=== PATIENT | female | born 1960 | race Two or more races ===

== ENCOUNTER 2016-05-07 12:32 | Emergency (ER) | payer OTHER ==
[2016-05-07] MEDS ORDERED: KETOROLAC 30 MG/ML 1 ML VIAL IVP STA (13:39)
[2016-05-07] MEDS ORDERED: DIAZEPAM 5 MG TAB PO STA (13:40)
[2016-05-07] MEDS ORDERED: LIDOCAINE 5% PATCH TOPICAL STA (13:40)
[2016-05-07] MEDS ORDERED: HYDROcodone/APAP 5-325MG 1 EACH TAB PO STA (13:40)
[2016-05-07] MEDS ORDERED: KETOROLAC 30 MG/ML 1 ML VIAL IM STA (14:18)
--- NOTE | 2016-05-07 14:45 | XR ---
EXAMINATION TYPE: XR thoracic spine complete DATE OF EXAM: 05/07/2016 2:41 PM CLINICAL HISTORY: Mid back pain after injury. TECHNIQUE: Frontal, lateral, and swimmer's view of thoracic spine are obtained. COMPARISON: None. FINDINGS: Thoracic spine show satisfactory alignment without evidence of acute fracture or dislocatio n. Vertebral body heights and disc space heights are preserved. Visualized ribs are unremarkable jackie aterally. IMPRESSION: No acute fracture or dislocation is seen in the thoracic spine.
--- NOTE | 2016-05-07 15:30 | ED ---
Fall HPI - General Chief Complaint: Fall Stated Complaint: back injury Time Seen by Provider: 05/07/16 13:20 Source: patient Mode of arrival: ambulatory - History of Present Illness Initial Comments: Patient is a 56-year-old female with past mental history of fibromyalgia presenting with back pain after a fall. Patient states she was assisting her 82 -year-old father from the bathroom when he let go of his walker putting his weight on her for which she fell backwards hitting her back on a step. Patient had immediate pain. Patient states she didn't take anything for the pain. Patient woke up with continued pain for which she reports the ER. Patient denies any loss of bowel or bladder. Patient denies any saddle anesthesia. Patient locates pain at the midthoracic. She rates pain 10 out of 10. Patient complaining of back pain which radiates to her chest. She denies fever, chills , shortness breath, nausea, vomiting, diarrhea, abdominal pain, dysuria. - Related Data Home Medications Medication Instructions Recorded Confirmed Cholecalciferol [Vitamin D3] 1,000 unit PO DAILY@1200 07/28/13 05/07/16 Levothyroxine Sodium [Synthroid] 25 mcg PO DAILY 07/28/13 05/07/16 Methocarbamol [Robaxin] 750 mg PO PC-TID 07/28/13 05/07/16 Simvastatin [Zocor] 40 mg PO HS 07/28/13 05/07/16 Escitalopram [Lexapro] 20 mg PO DAILY 07/27/15 05/07/16 Gabapentin [Neurontin] 300 mg PO TID 07/27/15 05/07/16 hydrOXYzine PAMOATE [Vistaril] 25 mg PO TID 07/27/15 05/07/16 rOPINIRole HCL [Requip] 0.25 mg PO HS 07/27/15 05/07/16 Acetaminophen with Codeine 1 tab PO Q6HR PRN 05/07/16 05/07/16 [Tylenol w/codeine #4] Previous Rx's Medication Instructions Recorded Meclizine [Antivert] 25 mg PO TID PRN #15 tab 08/08/15 HYDROcodone/APAP 5-325MG [[place] 5] 1 each PO Q6HR PRN #6 tab 05/07/16 Ibuprofen [Motrin] 600 mg PO Q6HR PRN #20 tab 05/07/16 Methocarbamol [Robaxin-750] 750 mg PO TID #21 tablet 05/07/16 Allergies Allergy/AdvReac Type Severity Reaction Status Date / Time duloxetine HCl Allergy Rash/Hives Verified 05/07/16 13:53 [From Nita] Review of Systems ROS Statement: Those systems with pertinent positive or pertinent negative responses have been documented in the HPI. Constitutional: No fever and no chills. HENT: No congestion, no rhinorrhea and no sore throat. Eyes: No discharge and no redness. Respiratory: No cough and no shortness of breath. Cardiovascular: + chest pain and no palpitations. Gastrointestinal: No nausea, no vomiting, no abdominal pain and no diarrhea. Genitourinary: No dysuria and no hematuria. Musculoskeletal: + back pain and +arthralgias. Skin: No pallor and no rash. Neurological: No dizziness and No headaches. ROS Other: All systems not noted in ROS Statement are negative. Past Medical History Past Medical History: Thyroid Disorder Additional Past Medical History / Comment(s): anxiety, hypothyroidism, fibromyalgia, hypercholestremia History of Any Multi-Drug Resistant Organisms: None Reported Past Surgical History: Hysterectomy Past Psychological History: Anxiety, Depression Smoking Status: Current every day smoker Past Alcohol Use History: None Reported Past Drug Use History: None Reported General Exam - General Exam Comments Initial Comments: Constitutional: Patient appears well-developed and well-nourished. Mild distress with movement. Head: Normocephalic and atraumatic. Eyes: Conjunctivae and EOM are normal. Right eye exhibits no discharge. Left eye exhibits no discharge. No scleral icterus. Neck: Normal range of motion. Neck supple. Cardiovascular: Normal rate and regular rhythm. No murmur heard. Pulmonary/Chest: Effort normal and breath sounds normal. No respiratory distress. No wheezes. Abdominal: Soft. No distension. There is no tenderness. There is no rebound and no guarding. Musculoskeletal: Patient has maximal tenderness about T11/T12. No midline tenderness. No saddle anesthesia. Distal pulses present. Distal sensation and motor intact. Neurological: Patient alert and oriented to person, place, and time. Skin: Skin is warm and dry. Not diaphoretic. Nursing notes and vitals reviewed. Limitations: no limitations Course Vital Signs 05/07/16 05/07/16 13:11 15:48 Temperature 98.3 F 97.7 F Pulse Rate 80 74 Respiratory 18 16 Rate Blood Pressure 113/69 124/74 O2 Sat by Pulse 99 98 Oximetry - Reevaluation(s) Reevaluation #1: Patient doing much better after medication. Symptoms have resolved. No further chest pain or back pain. Medical Decision Making - Medical Decision Making Patient is a 56-year-old female with history of fibromyalgia presenting with acute midthoracic pain. Patient fell hitting her back on a carpeted step. Patient was given Valium 5 mg by mouth, [place] 5 mg, Toradol 30mg IM and a lidocaine patch. Thoracic XR unremarkable. EKG unremarkable. Prior to discharge, patient was resting comfortably in bed. Course of stay improved. Denies pain. Discussed physical exam and diagnostic tests with patient. Questions answered and patient is agreeable to discharge with close follow up with Primary Care Physician. Instructed to return to Emergency Department if symptoms worsen. Rate 79. NSR. No ST-T wave changes. MA internal normal . QRS interval normal. QTc duration normal. Disposition Clinical Impression: Back pain, Fall Disposition: HOME SELF-CARE Condition: Good Instructions: Back Pain (ED), Lower Back Exercises (ED) Prescriptions: HYDROcodone/APAP 5-325MG [[place] 5] 1 each PO Q6HR PRN #6 tab PRN Reason: Severe Pain Ibuprofen [Motrin] 600 mg PO Q6HR PRN #20 tab PRN Reason: Pain Methocarbamol [Robaxin-750] 750 mg PO TID #21 tablet Referrals: Go Marks III, MD [Primary Care Provider] - 1-2 days
[2016-05-07 15:49] VITALS: BP 124/74; PULSE 74; RESP 16; TEMP 97.7
== END 2016-05-07 15:48 | disposition home or self-care (01) ==
LOC: EC 12:32
DX: M54.6 Pain in thoracic spine (principal); W03.XXXA Other fall on same level due to collision with another person, initial encounter; Y93.F9 Activity, other caregiving; E03.9 Hypothyroidism, unspecified; M79.7 Fibromyalgia; F41.9 Anxiety disorder, unspecified; F32.9 Major depressive disorder, single episode, unspecified; F17.200 Nicotine dependence, unspecified, uncomplicated; Z79.899 Other long term (current) drug therapy; Z88.8 Allergy status to other drugs, medicaments and biological substances
CPT/HCPCS: 93005; 72072; 99284; 96372; J1885

== ENCOUNTER 2017-10-08 20:17 | Observation (INO) | payer OTHER ==
[2017-10-08] MEDS ORDERED: SODIUM CHLORIDE 0.9% 1,000 ML IV ONE (20:39)
[2017-10-08] MEDS ORDERED: ACETAMINOPHEN IV (For NPO) 1,000 MG in EMPTY BAG 1 BAG IVPB ONE (20:39)
[2017-10-08 21:13] LABS: Basophils # (A) 0.1 k/uL (0-0.2); Basophils % (A) 0 %; Eosinophils # (A) 0.2 k/uL (0-0.7); Eosinophils % (A) 1 %; HCT 44.6 % (34.0-46.0); HGB 13.9 gm/dL (11.4-16.0); Lymphocytes # (A) 3.4 k/uL (1.0-4.8); Lymphocytes % (A) 27 %; MCHC 31.1 g/dL (31.0-37.0); MCV 89.8 fL (80.0-100.0); Mean Platelet Volume 6.5; Monocytes # (A) 0.7 k/uL (0-1.0); Monocytes % (A) 5 %; Neutrophils # (A) 8.2 k/uL (1.3-7.7); Neutrophils % (A) 64 %; Platelet Count 397 k/uL (150-450); RBC 4.96 m/uL (3.80-5.40); RDW 14.3 % (11.5-15.5); WBC 12.9 k/uL (3.8-10.6)
--- NOTE | 2017-10-08 21:15 | ED ---
General Adult HPI - General Chief complaint: Syncope Stated complaint: headache/dizziness Time Seen by Provider: 10/08/17 20:32 Source: patient, EMS Mode of arrival: EMS - History of Present Illness Initial comments: This is a 57-year-old female who presents emergency department for an episode of unresponsiveness. The patient reportedly developed a squeezing type headache around 4 PM when her left for work. She states that she went to the other room to lay down and that the last thing that she remembers. The states that he came home on his lunch break and found her sleeping. He tried to shake her and wake her up however she did not respond. He states that she felt like she had a weak pulse and was not breathing so he called EMS. The states that EMS did CPR on the patient however EMS stated that they did a sternal rub on her and that she woke up. The patient does take Percocet and Neurontin for chronic pain. She states that she did take a Percocet earlier this morning however denies taking 1 his evening. She denies any illicit drug use except for medical marijuana. Currently she states that she has some chest pain and a headache. She denies any shortness of breath. No nausea, vomiting, or diarrhea. No cardiac history. No other acute complaints. - Related Data Home Medications Medication Instructions Recorded Confirmed Cholecalciferol [Vitamin D3] 1,000 unit PO DAILY 07/28/13 10/08/17 Levothyroxine Sodium [Synthroid] 25 mcg PO DAILY 07/28/13 10/08/17 rOPINIRole HCL [Requip] 0.25 mg PO HS 07/27/15 10/08/17 Cyanocobalamin [Vitamin B-12] 500 mcg PO DAILY 10/08/17 10/08/17 Etodolac [Lodine] 400 mg PO BID 10/08/17 10/08/17 Multivitamins, Thera [Multivitamin 1 tab PO DAILY 10/08/17 10/08/17 (formulary)] Simvastatin [Zocor] 20 mg PO HS 10/08/17 10/08/17 oxyCODONE-APAP 10-325MG [Percocet 1 tab PO Q6HR PRN 10/08/17 10/08/17 10-325 mg] Allergies Allergy/AdvReac Type Severity Reaction Status Date / Time duloxetine HCl Allergy Rash/Hives Verified 10/08/17 21:14 [From Cymbalta] Review of Systems ROS Statement: Those systems with pertinent positive or pertinent negative responses have been documented in the HPI. ROS Other: All systems not noted in ROS Statement are negative. Past Medical History Past Medical History: Fibromyalgia, Hyperlipidemia, Thyroid Disorder Additional Past Medical History / Comment(s): anxiety, History of Any Multi-Drug Resistant Organisms: None Reported Past Surgical History: Hysterectomy Past Psychological History: Anxiety, Depression Smoking Status: Current every day smoker Past Alcohol Use History: None Reported Past Drug Use History: Marijuana General Exam - General Exam Comments Initial Comments: Constitutional: Awake alert Appears comfortable Head: Normocephalic atraumatic Eyes: no conjunctival injection No scleral icterus EOMI, pupils are 2 mm and sluggish Neck: No JVD Supple Heart: Regular rate rhythm normal S1-S2 no murmurs Lungs: Clear to auscultation bilaterally No wheezing No rales Abdomen: Soft nondistended nontender Extremities: Non edematous DP pulses intact Radial pulses intact Neuro: A&Ox3, cranial nerves II through XII are grossly intact, 5 out of 5 strength in upper and lower extremities bilaterally, No focal neurologic deficits Psych: Appropriate mood and affect Course Vital Signs 10/08/17 20:18 Temperature 97.2 F L Pulse Rate 66 Respiratory 18 Rate Blood Pressure 142/74 O2 Sat by Pulse 95 Oximetry EKG Findings - EKG Comments: EKG Findings:: EKG is showing sinus bradycardia constitution party with a rate 57. No abnormal ST segment changes or T-wave inversion. QTC is 35. Other intervals normal. No ectopy. Medical Decision Making - Medical Decision Making This is a 37-year-old female who came in for an episode of unresponsiveness. At this time her blood work is unremarkable. CT the head is unremarkable. All testing is appeared normal. At this time the etiology of what occurred is unclear area and the is adamant that CPR was performed on scene by an officer for approximately 1 minute. Unclear if the patient had a syncopal episode with hypotension or if she actually did sustain cardiopulmonary arrest. The patient has had no complaints on the emergency department is awake and laughing. However due to the circumstances surrounding the event I feel that she needs to stay in the hospital for monitoring. We'll place on telemetry and consult cardiology for possible syncope. Patient may benefit from an echocardiogram. - Lab Data Result diagrams: 10/08/17 20:51 10/08/17 20:51 Lab Results 10/08/17 10/08/17 10/08/17 Range/Units 20:51 20:51 20:51 WBC 12.9 H (3.8-10.6) k/uL RBC 4.96 (3.80-5.40) m/uL Hgb 13.9 (11.4-16.0) gm/dL Hct 44.6 (34.0-46.0) % MCV 89.8 (80.0-100.0) fL MCH 28.0 (25.0-35.0) pg MCHC 31.1 (31.0-37.0) g/dL RDW 14.3 (11.5-15.5) % Plt Count 397 (150-450) k/uL Neutrophils % 64 % Lymphocytes % 27 % Monocytes % 5 % Eosinophils % 1 % Basophils % 0 % Neutrophils # 8.2 H (1.3-7.7) k/uL Lymphocytes # 3.4 (1.0-4.8) k/uL Monocytes # 0.7 (0-1.0) k/uL Eosinophils # 0.2 (0-0.7) k/uL Basophils # 0.1 (0-0.2) k/uL PT (9.0-12.0) sec INR (<1.2) APTT (22.0-30.0) sec Sodium 140 (137-145) mmol/L Potassium 4.9 (3.5-5.1) mmol/L Chloride 107 (98-107) mmol/L Carbon Dioxide 27 (22-30) mmol/L Anion Gap 6 mmol/L BUN 13 (7-17) mg/dL Creatinine 0.70 (0.52-1.04) mg/dL Est GFR (CKD-EPI)AfAm >90 (>60 ml/min/1.73 sqM) Est GFR (CKD-EPI)NonAf >90 (>60 ml/min/1.73 sqM) Glucose 86 (74-99) mg/dL Plasma Lactic Acid Malcolm (0.7-2.0) mmol/L Calcium 10.2 (8.4-10.2) mg/dL Magnesium 2.0 (1.6-2.3) mg/dL Total Bilirubin 0.6 (0.2-1.3) mg/dL AST 30 (14-36) U/L ALT 33 (9-52) U/L Alkaline Phosphatase 80 (38-126) U/L Troponin I (0.000-0.034) ng/mL NT-Pro-B Natriuret Pep 26 pg/mL Total Protein 7.9 (6.3-8.2) g/dL Albumin 4.6 (3.5-5.0) g/dL Urine Color Urine Appearance (Clear) Urine pH (5.0-8.0) Ur Specific [place] (1.001-1.035) Urine Protein (Negative) Urine Glucose (UA) (Negative) Urine Ketones (Negative) Urine Blood (Negative) Urine Nitrite (Negative) Urine Bilirubin (Negative) Urine Urobilinogen (<2.0) mg/dL Ur Leukocyte Esterase (Negative) Urine WBC (0-5) /hpf Ur Squamous Epith Cells (0-4) /hpf Urine Mucus (None) /hpf Urine HCG, Qual (Not Detectd) Salicylates <1.0 mg/dL Urine Opiates Screen (NotDetected) Ur Oxycodone Screen (NotDetected) Urine Methadone Screen (NotDetected) Ur Propoxyphene Screen (NotDetected) Acetaminophen <10.0 ug/mL Ur Barbiturates Screen (NotDetected) U Tricyclic Antidepress (NotDetected) Ur Phencyclidine Scrn (NotDetected) Ur Amphetamines Screen (NotDetected) U Methamphetamines Scrn (NotDetected) U Benzodiazepines Scrn (NotDetected) Urine Cocaine Screen (NotDetected) U Marijuana (THC) Screen (NotDetected) Serum Alcohol <10 mg/dL 10/08/17 10/08/17 10/08/17 Range/Units 20:51 20:51 21:06 WBC (3.8-10.6) k/uL RBC (3.80-5.40) m/uL Hgb (11.4-16.0) gm/dL Hct (34.0-46.0) % MCV (80.0-100.0) fL MCH (25.0-35.0) pg MCHC (31.0-37.0) g/dL RDW (11.5-15.5) % Plt Count (150-450) k/uL Neutrophils % % Lymphocytes % % Monocytes % % Eosinophils % % Basophils % % Neutrophils # (1.3-7.7) k/uL Lymphocytes # (1.0-4.8) k/uL Monocytes # (0-1.0) k/uL Eosinophils # (0-0.7) k/uL Basophils # (0-0.2) k/uL PT 10.5 (9.0-12.0) sec INR 1.1 (<1.2) APTT 26.0 (22.0-30.0) sec Sodium (137-145) mmol/L Potassium (3.5-5.1) mmol/L Chloride (98-107) mmol/L Carbon Dioxide (22-30) mmol/L Anion Gap mmol/L BUN (7-17) mg/dL Creatinine (0.52-1.04) mg/dL Est GFR (CKD-EPI)AfAm (>60 ml/min/1.73 sqM) Est GFR (CKD-EPI)NonAf (>60 ml/min/1.73 sqM) Glucose (74-99) mg/dL Plasma Lactic Acid Malcolm 0.7 (0.7-2.0) mmol/L Calcium (8.4-10.2) mg/dL Magnesium (1.6-2.3) mg/dL Total Bilirubin (0.2-1.3) mg/dL AST (14-36) U/L ALT (9-52) U/L Alkaline Phosphatase (38-126) U/L Troponin I <0.012 (0.000-0.034) ng/mL NT-Pro-B Natriuret Pep pg/mL Total Protein (6.3-8.2) g/dL Albumin (3.5-5.0) g/dL Urine Color Urine Appearance (Clear) Urine pH (5.0-8.0) Ur Specific [place] (1.001-1.035) Urine Protein (Negative) Urine Glucose (UA) (Negative) Urine Ketones (Negative) Urine Blood (Negative) Urine Nitrite (Negative) Urine Bilirubin (Negative) Urine Urobilinogen (<2.0) mg/dL Ur Leukocyte Esterase (Negative) Urine WBC (0-5) /hpf Ur Squamous Epith Cells (0-4) /hpf Urine Mucus (None) /hpf Urine HCG, Qual (Not Detectd) Salicylates mg/dL Urine Opiates Screen (NotDetected) Ur Oxycodone Screen (NotDetected) Urine Methadone Screen (NotDetected) Ur Propoxyphene Screen (NotDetected) Acetaminophen ug/mL Ur Barbiturates Screen (NotDetected) U Tricyclic Antidepress (NotDetected) Ur Phencyclidine Scrn (NotDetected) Ur Amphetamines Screen (NotDetected) U Methamphetamines Scrn (NotDetected) U Benzodiazepines Scrn (NotDetected) Urine Cocaine Screen (NotDetected) U Marijuana (THC) Screen (NotDetected) Serum Alcohol mg/dL 10/08/17 10/08/17 Range/Units 22:23 22:23 WBC (3.8-10.6) k/uL RBC (3.80-5.40) m/uL Hgb (11.4-16.0) gm/dL Hct (34.0-46.0) % MCV (80.0-100.0) fL MCH (25.0-35.0) pg MCHC (31.0-37.0) g/dL RDW (11.5-15.5) % Plt Count (150-450) k/uL Neutrophils % % Lymphocytes % % Monocytes % % Eosinophils % % Basophils % % Neutrophils # (1.3-7.7) k/uL Lymphocytes # (1.0-4.8) k/uL Monocytes # (0-1.0) k/uL Eosinophils # (0-0.7) k/uL Basophils # (0-0.2) k/uL PT (9.0-12.0) sec INR (<1.2) APTT (22.0-30.0) sec Sodium (137-145) mmol/L Potassium (3.5-5.1) mmol/L Chloride (98-107) mmol/L Carbon Dioxide (22-30) mmol/L Anion Gap mmol/L BUN (7-17) mg/dL Creatinine (0.52-1.04) mg/dL Est GFR (CKD-EPI)AfAm (>60 ml/min/1.73 sqM) Est GFR (CKD-EPI)NonAf (>60 ml/min/1.73 sqM) Glucose (74-99) mg/dL Plasma Lactic Acid Malcolm (0.7-2.0) mmol/L Calcium (8.4-10.2) mg/dL Magnesium (1.6-2.3) mg/dL Total Bilirubin (0.2-1.3) mg/dL AST (14-36) U/L ALT (9-52) U/L Alkaline Phosphatase (38-126) U/L Troponin I (0.000-0.034) ng/mL NT-Pro-B Natriuret Pep pg/mL Total Protein (6.3-8.2) g/dL Albumin (3.5-5.0) g/dL Urine Color Light Yellow Urine Appearance Clear (Clear) Urine pH 6.0 (5.0-8.0) Ur Specific [place] 1.009 (1.001-1.035) Urine Protein Negative (Negative) Urine Glucose (UA) Negative (Negative) Urine Ketones Negative (Negative) Urine Blood Negative (Negative) Urine Nitrite Negative (Negative) Urine Bilirubin 2+ H (Negative) Urine Urobilinogen <2.0 (<2.0) mg/dL Ur Leukocyte Esterase Trace H (Negative) Urine WBC 3 (0-5) /hpf Ur Squamous Epith Cells 1 (0-4) /hpf Urine Mucus Rare H (None) /hpf Urine HCG, Qual Not Detected (Not Detectd) Salicylates mg/dL Urine Opiates Screen Not Detected (NotDetected) Ur Oxycodone Screen Detected H (NotDetected) Urine Methadone Screen Not Detected (NotDetected) Ur Propoxyphene Screen Not Detected (NotDetected) Acetaminophen ug/mL Ur Barbiturates Screen Not Detected (NotDetected) U Tricyclic Antidepress Not Detected (NotDetected) Ur Phencyclidine Scrn Not Detected (NotDetected) Ur Amphetamines Screen Not Detected (NotDetected) U Methamphetamines Scrn Not Detected (NotDetected) U Benzodiazepines Scrn Detected H (NotDetected) Urine Cocaine Screen Not Detected (NotDetected) U Marijuana (THC) Screen Not Detected (NotDetected) Serum Alcohol mg/dL Disposition Clinical Impression: Unresponsive episode, Syncope Disposition: ADMITTED IP TO THIS HOSP Condition: Stable
[2017-10-08 21:17] LABS: INR 1.1 (<1.2); Prothrombin Time 10.5 sec (9.0-12.0)
[2017-10-08 21:23] LABS: ALT 33 U/L (9-52); AST 30 U/L (14-36); Acetaminophen <10.0 ug/mL; Albumin 4.6 g/dL (3.5-5.0); Alcohol <10 mg/dL; Alkaline Phosphatase 80 U/L (38-126); Anion Gap 6 mmol/L; Blood Urea Nitrogen 13 mg/dL (7-17); Calcium 10.2 mg/dL (8.4-10.2); Carbon Dioxide 27 mmol/L (22-30); Chloride 107 mmol/L (98-107); Glucose 86 mg/dL (74-99); Potassium 4.9 mmol/L (3.5-5.1); Salicylate <1.0 mg/dL; Sodium 140 mmol/L (137-145); Total Bilirubin 0.6 mg/dL (0.2-1.3); Total Protein 7.9 g/dL (6.3-8.2)
--- NOTE | 2017-10-08 21:40 | XR ---
EXAMINATION TYPE: XR chest 2V DATE OF EXAM: 10/08/2017 COMPARISON: 08/08/2015 HISTORY: Chest pain TECHNIQUE: Frontal and lateral views of the chest are obtained. FINDINGS: Heart and mediastinum are normal. Lungs are clear. Diaphragm is normal. IMPRESSION: Normal chest. No change.
--- NOTE | 2017-10-08 21:47 | CT ---
EXAMINATION TYPE: CT brain wo con DATE OF EXAM: 10/08/2017 COMPARISON: 08/08/2015 HISTORY: GERONIMO and dizziness CT DLP: 990.5 mGycm Automated exposure control for dose reduction was used. FINDINGS: There is mild cerebral cortical atrophy. There is no mass effect nor midline shift. There is no sign of intracranial hemorrhage. The calvarium is intact. There is mild mucosal thickening in the sphenoid sinus. IMPRESSION: NO ACUTE INTRACRANIAL ABNORMALITY. MILD SPHENOID SINUSITIS IS NEW COMPARED TO OLD EXAM.
[2017-10-08 22:36] LABS: Appearance,Urine Clear (Clear); Bilirubin,Urine 2+ (Negative); Blood,Urine Negative (Negative); Color,Urine Light Yellow; Glucose,Urine (UA) Negative (Negative); Ketones,Urine Negative (Negative); Leukocyte Esterase,Urine Trace (Negative); Mucus,Urine Rare /hpf; Nitrite,Urine Negative (Negative); Protein,Urine Negative (Negative); Specific Gravity,Urine 1.009 (1.001-1.035); Squamous Epithelial Cell,Urine 1 /hpf (0-4); Urobilinogen,Urine <2.0 mg/dL (<2.0); WBC,Urine 3 /hpf (0-5)
[2017-10-08 22:47] LABS: Amphetamine Screen,Urine Not Detected (NotDetected); Barbiturate Screen,Urine Not Detected (NotDetected); Benzodiazepines Screen,Urine Detected (NotDetected); Cocaine Screen,Urine Not Detected (NotDetected); Methadone Screen, Urine Not Detected (NotDetected); Opiate Screen,Urine Not Detected (NotDetected); Oxycodone Screen, Urine Detected (NotDetected); Phencyclidine Screen,Urine Not Detected (NotDetected); Tricyclic Antidepressant,Urine Not Detected (NotDetected); Urn Cannabinoid Scrn Not Detected (NotDetected)
[2017-10-08] MEDS ORDERED: ONDANSETRON 4 MG/2 ML VIAL IVP PRN (22:48)
[2017-10-08] MEDS ORDERED: NALOXONE 0.4 MG/ML 1 ML VIAL IV PRN (22:48)
[2017-10-08] MEDS ORDERED: ACETAMINOPHEN TAB 325 MG TAB PO PRN (22:48)
[2017-10-09 00:04] VITALS: BMI 32.8
[2017-10-09] MEDS: oxyCODONE-APAP 10-325MG 1 EACH TAB PO PRN ×3 (00:41→21:15)
[2017-10-09 03:12] LABS: Creatine Kinase 54 U/L (30-135)
[2017-10-09 03:25] LABS: Creatine Kinase MB 0.3 ng/mL (0.0-2.4); Troponin I <0.012 ng/mL (0.000-0.034)
[2017-10-09] MEDS: LEVOTHYROXINE 25 MCG TAB PO SCH (06:41)
[2017-10-09] MEDS: ETODOLAC 400 MG TAB PO SCH ×2 (08:57→21:08)
[2017-10-09] MEDS: CYANOCOBALAMIN 500 MCG TAB PO SCH (08:58)
[2017-10-09] MEDS: MULTIVITAMINS, THERA 1 EACH TAB PO SCH (08:58)
[2017-10-09] MEDS: CHOLECALCIFEROL 1,000 UNIT TAB PO SCH (08:58)
[2017-10-09] MEDS ORDERED: DOBUTamine DRIP for NUC MED 500 MG in DEXTROSE/WATER 1 250ML.BAG IV ONE (09:11)
--- NOTE | 2017-10-09 10:15 | ECHOF ---
Referral Reason:cp MEASUREMENTS -------- HEIGHT: 154.9 cm WEIGHT: 78.5 kg BP: 103/61 RVIDd: 3.0 cm (< 3.3) IVSd: 1.2 cm (0.6 - 1.1) LVIDd: 4.5 cm (3.9 - 5.3) LVPWd: 1.2 cm (0.6 - 1.1) IVSs: 1.6 cm LVIDs: 2.7 cm LVPWs: 2.0 cm LA Diam: 3.5 cm (2.7 - 3.8) LAESV Index (A-L): 22.92 ml/m Ao Diam: 3.0 cm (2.0 - 3.7) AV Cusp: 2.0 cm (1.5 - 2.6) MV EXCURSION: 13.189 mm (> 18.000) MV EF SLOPE: 80 mm/s (70 - 150) EPSS: 0.3 cm MV E David: 1.13 m/s MV DecT: 227 ms MV A David: 0.76 m/s MV E/A Ratio: 1.48 RAP: 5.00 mmHg RVSP: 18.74 mmHg FINDINGS -------- Sinus rhythm. This was a technically good study. The left ventricular size is normal. There is borderline concentric left ventricular hypertrophy. Overall left ventricular systolic function is normal with, an EF between 55 - 60 %. The right ventricle is normal in size. Normal LA size by volume 22+/-6 ml/m2. The right atrium is normal in size. The aortic valve is trileaflet and appears structurally normal. Mild mitral annular calcification present. Mild tricuspid regurgitation present. Right ventricular systolic pressure is normal at < 35 mmHg. Trace/mild (physiologic) pulmonic regurgitation. The aortic root size is normal. Normal inferior vena cava with normal inspiratory collapse consistent with estimated right atrial pre ssure of 5 mmHg. There is no pericardial effusion. CONCLUSIONS -------- 1. Sinus rhythm. 2. This was a technically good study. 3. The left ventricular size is normal. 4. There is borderline concentric left ventricular hypertrophy. 5. Overall left ventricular systolic function is normal with, an EF between 55 - 60 %. 6. The right ventricle is normal in size. 7. Normal LA size by volume 22+/-6 ml/m2. 8. The right atrium is normal in size. 9. The aortic valve is trileaflet and appears structurally normal. 10. Mild mitral annular calcification present. 11. Mild tricuspid regurgitation present. 12. Right ventricular systolic pressure is normal at < 35 mmHg. 13. Trace/mild (physiologic) pulmonic regurgitation. 14. The aortic root size is normal. 15. Normal inferior vena cava with normal inspiratory collapse consistent with estimated right atrial pressure of 5 mmHg. 16. There is no pericardial effusion. PERSONAL DEVELOPMENT MENTOR: Danica Briggs RDCS
[2017-10-09 10:19] LABS: Creatine Kinase 52 U/L (30-135)
[2017-10-09 10:32] LABS: Creatine Kinase MB 0.3 ng/mL (0.0-2.4); Troponin I <0.012 ng/mL (0.000-0.034)
--- NOTE | 2017-10-09 10:32 | P.CRDCN ---
History of Present Illness History of present illness: Mrs. Herrera is a pleasant 57-year-old female past medical history significant for dyslipidemia, fibromyalgia, anxiety, hypothyroidism and chronic nicotine dependence. She denies history of coronary artery disease and has never seen a nail sticker for any reason. We have been asked to see her in consultation for chest pain and syncope. She states yesterday was feeling tired and was having some non-specific chest tightness. Like a band around her chest squeezing. Denies shortness of breath, palpitations, dizziness, nausea, vomiting or diaphoresis. She went to lay down in bed, her came to check on her and states she was unresponsive and not breathing. EMS was called and there is some question of them doing chest compressions versus a sternal rub. She states she woke up at home after EMS arrived. After waking up she denied having any chest pain, shortness of breath, nausea, vomiting, diaphoresis, palpitations or dizziness. She states she felt anxious. EKG reveals sinus bradycardia heart rate [address] or T-wave abnormalities. Chest xray negative for an acute cardiopulmonary process. CT brain reveals sinusitis. Laboratory data reviewed, WBC 12.9, hemoglobin 13.9, platelets 397, sodium 140, potassium 4.9, magnesium 2.0, creatinine 0.7, cardiac enzymes negative 2. Current cardiac medications include simvastatin 20 mg daily. She also takes Percocet, Requip, Synthroid, [place] and and vitamin supplementation. Telemetry tracings unremarkable. Review of Systems At the time of my exam: CONSTITUTIONAL: Denies fever. Denies chills. EYES: Denies blurred vision. Denies vision changes. Denies eye pain. EARS, NOSE, MOUTH & THROAT: Denies headache. Denies sore throat. Denies ear pain. CARDIOVASCULAR: Denies chest pain. Denies shortness of breath. Denies orthopnea. Denies PND. Denies palpitations. RESPIRATORY: Denies cough. GASTROINTESTINAL: Denies abdominal pain. Denies diarrhea. Denies constipation. Denies nausea. Denies vomiting. MUSCULOSKELETAL: Denies myalgias. INTEGUMENTARY: Denies pruitis. Denies rash. NEUROLOGIC: Denies numbness. Denies tingling. Denies weakness. PSYCHIATRIC: Denies anxiety. Denies depression. ENDOCRINE: Denies fatigue. Denies weight change. Denies polydipsia. Denies polyurina. GENITOURINARY: Denies burning, hematuria or urgency with micturation. HEMATOLOGIC: Denies history of anemia. Denies bleeding. Past Medical History Past Medical History: Fibromyalgia, Hyperlipidemia, Thyroid Disorder Additional Past Medical History / Comment(s): anxiety, History of Any Multi-Drug Resistant Organisms: None Reported Past Surgical History: Hysterectomy Past Anesthesia/Blood Transfusion Reactions: No Reported Reaction Smoking Status: Current every day smoker - Past Family History Mother Family Medical History: Cancer Additional Family Medical History / Comment(s): stomach CA Father Family Medical History: Cancer Additional Family Medical History / Comment(s): Throat CA Sister(s) Family Medical History: Cancer Additional Family Medical History / Comment(s): Breast CA Medications and Allergies Home Medications Medication Instructions Recorded Confirmed Type Cholecalciferol [Vitamin D3] 1,000 unit PO DAILY 07/28/13 10/08/17 History Levothyroxine Sodium [Synthroid] 25 mcg PO DAILY 07/28/13 10/08/17 History rOPINIRole HCL [Requip] 0.25 mg PO HS 07/27/15 10/08/17 History Cyanocobalamin [Vitamin B-12] 500 mcg PO DAILY 10/08/17 10/08/17 History Etodolac [Lodine] 400 mg PO BID 10/08/17 10/08/17 History Multivitamins, Thera [Multivitamin 1 tab PO DAILY 10/08/17 10/08/17 History (formulary)] Simvastatin [Zocor] 20 mg PO HS 10/08/17 10/08/17 History oxyCODONE-APAP 10-325MG [Percocet 1 tab PO Q6HR PRN 10/08/17 10/08/17 History 10-325 mg] Allergies Allergy/AdvReac Type Severity Reaction Status Date / Time duloxetine HCl Allergy Rash/Hives Verified 10/08/17 23:53 [From [facility]] Physical Exam Vitals: Vital Signs Temp Pulse Pulse Resp BP BP Pulse Ox 10/09/17 03:53 98.0 F 71 18 103/61 97 10/09/17 03:15 16 10/09/17 00:00 16 10/08/17 23:57 97.6 F 62 16 129/68 97 10/08/17 22:56 70 20 126/75 99 07/23/18 20:18 97.2 F L 66 18 142/74 95 Intake and Output 10/08/17 10/09/17 10/09/17 22:59 06:59 14:59 Intake Total 800 Balance 800 Intake: Amount of Fluid Infused ( 800 ml) Other: # Voids 1 Weight 78.925 kg 78.9 kg Blood pressure 102/60 heart rate 62 afebrile maintaining oxygen saturation on room air GENERAL: This is a 57-year-old female in no apparent distress at the time of my examination. HEENT: Head is atraumatic, normocephalic. Pupils are equal, round. Sclerae anicteric. Conjunctivae are clear. Mucous membranes of the mouth are moist. Neck is supple. There is no jugular venous distention. No carotid bruit is heard. LUNGS: Clear to auscultation no wheezes, rales or rhonchi. No chest wall tenderness is noted on palpation or with deep breathing. HEART: Regular rate and rhythm without murmurs, rubs or gallops. S1 and S2 heard. ABDOMEN: Soft, nontender. Bowel sounds are heard. No organomegaly noted. EXTREMITIES: No evidence of peripheral edema and no calf tenderness noted. VASCULAR: Radial and dorsalis pedis pulses palpated, no evidence of clubbing. NEUROLOGIC: Patient is awake, alert and oriented x3. Results 10/08/17 20:51 10/08/17 20:51 Cardiac Enzymes 10/08/17 10/08/17 10/09/17 Range/Units 20:51 20:51 02:40 AST 30 (14-36) U/L CK-MB (CK-2) 0.3 (0.0-2.4) ng/mL Troponin I <0.012 <0.012 (0.000-0.034) ng/mL Coagulation 10/08/17 Range/Units 20:51 PT 10.5 (9.0-12.0) sec APTT 26.0 (22.0-30.0) sec CBC 10/08/17 Range/Units 20:51 WBC 12.9 H (3.8-10.6) k/uL RBC 4.96 (3.80-5.40) m/uL Hgb 13.9 (11.4-16.0) gm/dL Hct 44.6 (34.0-46.0) % Plt Count 397 (150-450) k/uL Comprehensive Metabolic Panel 10/08/17 Range/Units 20:51 Sodium 140 (137-145) mmol/L Potassium 4.9 (3.5-5.1) mmol/L Chloride 107 (98-107) mmol/L Carbon Dioxide 27 (22-30) mmol/L BUN 13 (7-17) mg/dL Creatinine 0.70 (0.52-1.04) mg/dL Glucose 86 (74-99) mg/dL Calcium 10.2 (8.4-10.2) mg/dL AST 30 (14-36) U/L ALT 33 (9-52) U/L Alkaline Phosphatase 80 (38-126) U/L Total Protein 7.9 (6.3-8.2) g/dL Albumin 4.6 (3.5-5.0) g/dL Current Medications Generic Name Dose Route Start Last Admin Trade Name Freq PRN Reason Stop Dose Admin Acetaminophen 650 mg 10/08/17 22:48 Tylenol Tab PO Q6HR PRN Mild Pain or Fever > 100.5 Atorvastatin Calcium 10 mg 10/09/17 21:00 Lipitor PO HS [facility] Cholecalciferol 1,000 unit 10/09/17 09:00 Vitamin D3 PO DAILY [facility] Cyanocobalamin 500 mcg 10/09/17 09:00 Vitamin B-12 PO DAILY [facility] Etodolac 400 mg 10/09/17 09:00 Lodine PO BID [facility] Levothyroxine Sodium 25 mcg 10/09/17 06:30 10/09/17 06:41 Synthroid PO 25 mcg 0630 [facility] Administration Multivitamins 1 each 10/09/17 09:00 Theragran PO DAILY [facility] Naloxone HCl 0.2 mg 10/08/17 22:48 Narcan IV Q2M PRN Opioid Reversal Ondansetron HCl 4 mg 10/08/17 22:48 Zofran IVP Q8HR PRN Nausea And Vomiting Oxycodone/Acetaminophen 1 each 10/09/17 00:35 10/09/17 06:41 Percocet 10-325 PO 1 each Q6HR PRN Administration SEVERE Pain Ropinirole HCl 0.25 mg 10/09/17 21:00 Requip PO HS [facility] Intake and Output 07/2310/09/17 10/09/17 22:59 06:59 14:59 Intake Total 800 Balance 800 Intake: Amount of Fluid Infused ( 800 ml) Other: # Voids 1 Weight 78.925 kg 78.9 kg 10/08/17 20:51 10/08/17 20:51 Assessment and Plan Assessment: ASSESSMENT Chest pain, atypical. An acute coronary event has been ruled out. Possible syncope. History of dyslipidemia Fibromyalgia Chronic nicotine dependence PLAN An acute coronary event has been ruled out. Obtain 2-D echocardiogram and Doppler study to assess cardiac structure and function. Perform dobutamine stress echocardiogram to assess for stress-induced cardiac ischemia. If above diagnostic testing is normal she is stable from a cardiac perspective. Thank you kindly for this consultation. The above impression and plan of care have been discussed and directed by the signing physician. Sabi Alcaraz, nurse practitioner, acting as scribe for signing physician.
--- NOTE | 2017-10-09 12:52 | ECHOS ---
STRESS ECHOCARDIOGRAM INDICATIONS: Chest pain. MEDICATIONS: Thyroid, cholesterol and nerve pills. BASELINE HEART RATE: 58 BASELINE BLOOD PRESSURE: 116/99 MAXIMUM HEART RATE: 142 MAXIMUM BLOOD PRESSURE: 138/60 85% MPHR: 140 100% MPHR: 165 MAXIMUM STAGE REACHED: IV TOTAL EXERCISE TIME: 12:10 CLINICAL INFORMATION: Baseline EKG shows sinus rhythm, normal axis, normal intervals. Patient was given intravenous dobutamine over a period of 12 minutes as per protocol. Did not have chest pain or diagnostic ST-segment depression. Baseline echo shows normal left ventricular size, wall motion and systolic function. Post dobutamine infusion, there is normal hyperdynamic response of all segments of myocardium noted. CONCLUSION: 1. Negative stress test by EKG criteria. 2. Negative dobutamine echo. MMODL / IJN: [id number] /
[2017-10-09 15:51] LABS: Basophils % (A) 1 %; HGB 12.4 gm/dL (11.4-16.0); Neutrophils # (A) 3.9 k/uL (1.3-7.7); RDW 14.3 % (11.5-15.5); WBC 7.9 k/uL (3.8-10.6)
[2017-10-09 15:53] LABS: Eosinophils # (A) 0.2 k/uL (0-0.7); Eosinophils % (A) 2 %; HCT 37.8 % (34.0-46.0); Lymphocytes % (A) 39 %; MCH 29.6 pg (25.0-35.0); MCHC 32.9 g/dL (31.0-37.0); Mean Platelet Volume 6.8; Monocytes # (A) 0.4 k/uL (0-1.0); Monocytes % (A) 6 %; Neutrophils % (A) 50 %; Platelet Count 362 k/uL (150-450)
--- NOTE | 2017-10-09 15:55 | P.HPIM ---
History of Present Illness This is a pleasant 57 years old female with past medical history of fibromyalgia , hyperlipidemia hypothyroidism, hysterectomy. Who presents because of syncope. Patient reports she had severe intense headache on the top of her head for unknown durations and she went to bed rest and the second thing she remembers is that there are the EMS people trying to do CPR for her and at bedside trying to wake her up. She thinks that she was lying 4 seconds but she wasn't sure. She was not sure if she has seizure-like activities however patient denies urine or bowel incontinence and no tongue biting, and there is no clear report of post-syncope confusion, patient states she has been under a lot of stress recently, including the of her parents. Patient reports she has several attacks of headaches about 2 to 3H days, she wasn't sure [facility] last period but she states at least she has been having these headache attacks for about several weeks, associated with numbness in both of her fingers at times area Patient denies blurred vision, difficulty in speech. She denies any weakness or numbness. She states her gait is at her baseline. During the syncope patient also reported chest tightness, however patient has been evaluated by auditor tax already and cleared her for discharge Also patient complains of pain in the right neck area that was started today Review of Systems CONSTITUTIONAL: No fever, no malaise, no fatigue. HEENT: No recent visual problems or hearing problems. Denied any sore throat. CARDIOVASCULAR: No orthopnea, PND, no palpitations, no syncope. PULMONARY: No shortness of breath, no cough, no hemoptysis. GASTROINTESTINAL: No diarrhea, no nausea, no vomiting, no abdominal pain. Normoactive bowel sounds. NEUROLOGICAL: No headaches, no weakness, no numbness. HEMATOLOGICAL: Denies any bleeding or petechiae. GENITOURINARY: Denies any burning micturition, frequency, or urgency. MUSCULOSKELETAL/RHEUMATOLOGICAL: Denies any joint pain, swelling, or any muscle pain. ENDOCRINE: Denies any polyuria or polydipsia. Past Medical History Past Medical History: Fibromyalgia, Hyperlipidemia, Thyroid Disorder Additional Past Medical History / Comment(s): anxiety, History of Any Multi-Drug Resistant Organisms: None Reported Past Surgical History: Hysterectomy Past Anesthesia/Blood Transfusion Reactions: No Reported Reaction Smoking Status: Current every day smoker - Past Family History Mother Family Medical History: Cancer Additional Family Medical History / Comment(s): stomach CA Father Family Medical History: Cancer Additional Family Medical History / Comment(s): Throat CA Sister(s) Family Medical History: Cancer Additional Family Medical History / Comment(s): Breast CA Medications and Allergies Home Medications Medication Instructions Recorded Confirmed Type RX: Cholecalciferol [Vitamin D3] 1,000 unit PO DAILY 07/28/13 10/08/17 History RX: Levothyroxine Sodium 25 mcg PO DAILY 07/28/13 10/08/17 History [Synthroid] rOPINIRole HCL [Requip] 0.25 mg PO HS 07/27/15 10/08/17 History Cyanocobalamin [Vitamin B-12] 500 mcg PO DAILY 10/08/17 10/08/17 History Etodolac [Lodine] 400 mg PO BID 10/08/17 10/08/17 History Multivitamins, Thera [Multivitamin 1 tab PO DAILY 10/08/17 10/08/17 History (formulary)] Simvastatin [Zocor] 20 mg PO HS 10/08/17 10/08/17 History oxyCODONE-APAP 10-325MG [Percocet 1 tab PO Q6HR PRN 10/08/17 10/08/17 History 10-325 mg] Allergies Allergy/AdvReac Type Severity Reaction Status Date / Time duloxetine HCl Allergy Rash/Hives Verified 10/08/17 23:53 [[facility]] Physical Exam Vitals: Vital Signs Temp Pulse Pulse Resp BP BP Pulse Ox 10/09/17 12:10 98.2 F 72 18 115/77 96 10/09/17 12:00 62 18 10/09/17 08:00 62 18 10/09/17 07:20 97.9 F 62 18 102/60 98 10/09/17 03:53 98.0 F 71 18 103/61 97 10/09/17 03:15 16 10/09/17 00:00 16 10/08/17 23:57 97.6 F 62 16 129/68 97 10/08/17 22:56 70 20 126/75 99 10/08/17 20:18 97.2 F L 66 18 142/74 95 Intake and Output 10/08/17 10/09/17 10/09/17 22:59 06:59 14:59 Intake Total 800 400 Balance 800 400 Intake: Amount of Fluid Infused ( 800 ml) Oral 400 Other: Voiding Method Toilet # Voids 1 Weight 78.925 kg 78.9 kg 78.471 kg GENERAL: The patient is alert and oriented x3, not in any acute distress. Well developed, well nourished. HEENT: Pupils are round and equally reacting to light. EOMI. No scleral icterus. No conjunctival pallor. Normocephalic, atraumatic. No pharyngeal erythema. No thyromegaly. CARDIOVASCULAR: S1 and S2 present. No murmurs, rubs, or gallops. PULMONARY: Chest is clear to auscultation, no wheezing or crackles. ABDOMEN: Soft, nontender, nondistended, normoactive bowel sounds. No palpable organomegaly. MUSCULOSKELETAL: No joint swelling or deformity. EXTREMITIES: No cyanosis, clubbing, or pedal edema. NEUROLOGICAL: Gross neurological examination did not reveal any focal deficits. SKIN: No rashes. Results CBC & Chem 7: 10/08/17 20:51 10/08/17 20:51 Labs: Abnormal Lab Results - Last 24 Hours (Table) 10/08/17 10/08/17 Range/Units 20:51 22:23 WBC 12.9 H (3.8-10.6) k/uL Neutrophils # 8.2 H (1.3-7.7) k/uL Urine Bilirubin 2+ H (Negative) Ur Leukocyte Esterase Trace H (Negative) Urine Mucus Rare H (None) /hpf Ur Oxycodone Screen Detected H (NotDetected) U Benzodiazepines Scrn Detected H (NotDetected) Thrombosis Risk Factor Assmnt - Choose All That Apply Each Factor Represents 1 point: Age 41-60 years Thrombosis Risk Factor Assessment Total Risk Factor Score: 1 Thrombosis Risk Factor Assessment Level: Low Risk Assessment and Plan Plan: -Syncope, unknown cause. Patient has been evaluated by auditor tax and cleared her for discharge, after she underwent a negative stress test by EKG and dobutamine echo stress test 10/08/2017. CT of the brain: Negative. call neurology consult: Pending -Patient states she has several attacks of headache over several weeks, about 2- 3 times per day, for unknown duration on the top of her head, differential diagnosis including migraine versus tension headaches versus other. Neurology consults -Pain in the right side of the neck, we will check for carotid duplex -History of fibromyalgia, continue same treatment DVT prophylaxis subcutaneous heparin GI prophylaxis Pepcid
--- NOTE | 2017-10-09 19:14 | US ---
EXAMINATION TYPE: US carotid duplex BILAT DATE OF EXAM: 10/09/2017 COMPARISON: 07/28/2013 CLINICAL HISTORY: Syncope with right neck pain. Syncope, right neck pain EXAM MEASUREMENTS: RIGHT: Peak Systolic Velocity (PSV) cm/sec ----- Right CCA: 77.8 ----- Right ICA: 70.6 ----- Right ECA: 114.4 ICA/CCA ratio: 0.9 RIGHT: End Diastole cm/sec ----- Right CCA: 24.8 ----- Right ICA: 24.2 ----- Right ECA: 26.0 LEFT: Peak Systolic Velocity (PSV) cm/sec ----- Left CCA: 74.1 ----- Left ICA: 85.2 ----- Left ECA: 77.4 ICA/CCA ratio: 1.1 LEFT: End Diastole cm/sec ----- Left CCA: 25.7 ----- Left ICA: 35.7 ----- Left ECA: 19.1 VERTEBRALS (direction of flow): Right Vertebral: Antegrade Left Vertebral: Antegrade Rhythm: Normal Minimal plaque bilateral bifurcations. No evidence of significant stenosis. IMPRESSION: There is antegrade flow in the vertebral arteries. The images and measurements suggest l ess than 10% stenosis at both internal carotid arteries. No adverse change. Criteria for Assigning % of Stenosis / Diameter reduction (Estimation based on the indirect measurements of the internal carotid artery velocities (ICA PSV). 1. Normal (no stenosis)=ICA PSV < 125 cm/s: ratio < 2.0: ICA EDV<40 cm/s. 2. Less than 50% stenosis=ICA PSV < 125 cm/s: ratio < 2.0: ICA EDV<40 cm/s. 3. 50 to 69% stenosis=ICA PSV of 125 to 230 cm/s: ration 2.0 ? 4.0: ICA EDV 40-100 cm/s. 4. Greater than 70% stenosis to near occlusion= ICA PSV > 230 cm/s: ratio > 4.0: ICA EDV > 100 cm/s. 5. Near occlusion= ICA PSV velocities may be low or undetectable: variable ratio and ICA EDV. 6. Total occlusion=unable to detect flow.
[2017-10-09] MEDS ORDERED: ATORVASTATIN 10 MG TAB PO SCH (21:00)
[2017-10-09] MEDS: FAMOTIDINE 20 MG/2 ML VIAL IV SCH (21:07)
[2017-10-09] MEDS: HEPARIN SODIUM,PORCINE 5,000 UNIT/ML 1 ML VIAL SQ SCH (21:08)
[2017-10-10] MEDS: oxyCODONE-APAP 10-325MG 1 EACH TAB PO PRN ×2 (03:28→12:53)
[2017-10-10] MEDS: LEVOTHYROXINE 25 MCG TAB PO SCH (05:38)
[2017-10-10 07:48] VITALS: RESP 18
[2017-10-10] MEDS: CHOLECALCIFEROL 1,000 UNIT TAB PO SCH (08:14)
[2017-10-10] MEDS: ETODOLAC 400 MG TAB PO SCH (08:14)
[2017-10-10] MEDS: CYANOCOBALAMIN 500 MCG TAB PO SCH (08:14)
[2017-10-10] MEDS: HEPARIN SODIUM,PORCINE 5,000 UNIT/ML 1 ML VIAL SQ SCH (08:15)
[2017-10-10] MEDS: FAMOTIDINE 20 MG/2 ML VIAL IV SCH (08:15)
[2017-10-10] MEDS: MULTIVITAMINS, THERA 1 EACH TAB PO SCH (08:15)
--- NOTE | 2017-10-10 08:36 | CONS ---
CONSULTATION DATE OF CONSULTATION: 10/09/2017 CHIEF COMPLAINT: Altered mental status. HISTORY OF PRESENT ILLNESS: Mrs. Herrera is a 57-year-old female who is being evaluated today on 10/09/2017 by the neurology service per the request of Dr. Lyon for an episode of altered mental status. The patient states that she remembers being at home and then her family noticed that she was somewhat lethargic. The patient remembers that she was having a headache and wanted to take a nap. Her family tried to wake her up and they had difficulty doing so. EMS was called and the patient was found to be quite lethargic and transferred to [facility] Emergency Room for further management. No seizure-like activity was described. A CT scan of the brain was done, which was normal. Her urine drug screen was positive for oxycodone and benzodiazepine. The patient does take Percocet as needed at home, but she does not have any benzodiazepine listed as a home medication. When asked about this, she states that she has been given trazodone by Dr. Vanegas and she takes that as needed. She does not recall when she took trazodone last. She is also complaining of chest pain and upper extremity numbness in the emergency room but these have resolved. Her cardiac enzymes and CBC were normal. At the time of my evaluation, she is lying in her bed and appears to be in no acute distress. She is back to her baseline and denies any neurological complaints. PAST MEDICAL HISTORY: Chronic pain syndrome, restless legs syndrome, dyslipidemia, hypothyroidism, fibromyalgia, anxiety disorder, history of hysterectomy. SOCIAL HISTORY: The patient is a current every day smoker. She denies any alcohol or IV drug use. FAMILY HISTORY: Positive for cancer. HOME MEDICATIONS: Reviewed in the chart. ALLERGIES: CYMBALTA. REVIEW OF SYSTEMS: As mentioned above and otherwise negative. PHYSICAL EXAM: Vital signs show a temperature of 99.1, pulse 62, respirations 16, blood pressure 115/71. GENERAL APPEARANCE: The patient is a well-developed female who appears to be in no acute distress. HEENT: Normocephalic, atraumatic, no facial asymmetry is seen. Neck is supple with no masses felt. CARDIOVASCULAR: Regular rate and rhythm. ABDOMEN: Nontender, nondistended. Extremities showed no edema or clubbing. NEUROLOGICAL EXAM: The patient is alert, aware and oriented x3. Speech and language are normal. Strength is full in all 4 extremities. Sensory exam was normal to light touch in all 4 extremities. No tremors or seizure-like activity is seen. No facial asymmetry is noticed on cranial nerve testing. IMPRESSION: 1. Altered mental status. 2. Likely toxic encephalopathy, resolved. 3. Headache, resolved. 4. Upper extremity numbness, resolved. 5. Chest pain, resolved. 6. Chronic pain syndrome. RECOMMENDATION: The patient's altered mental status has completely resolved. The patient was lethargic as mentioned above when EMS arrived to the house. I do believe that this was due to medication adverse effect. Her urine drug screen was positive for benzodiazepine and oxycodone. I had a lengthy discussion with the patient regarding the dangers of taking oxycodone with benzodiazepine. Otherwise, her CT scan of the brain and laboratory workup was normal. An EEG has been ordered. The patient will likely be cleared for discharge tomorrow. Continue with neuro checks. I will continue to follow with you. Further recommendations to follow. Thank you for allowing me to participate in the care of your patient. If you have any questions, please feel free to contact me. MMODL / IJN: [id number] /
[2017-10-10 11:55] VITALS: BP 123/84; TEMP 98.5
[2017-10-10 12:12] VITALS: PULSE 58
--- NOTE | 2017-10-10 15:29 | P.PN ---
Subjective Progress Note Date: 10/10/17 Principal diagnosis: Altered mental status Neurology is following on a 57-year-old female for altered mental status. Patient last remembers being at home and becoming lethargic. Patient complained of a headache and then went to take a nap. Family tried to arouse patient but had difficulty with arousing patient from sleep. EMS was called and transported patient to the ED. CT brain was done in the ED which was normal. Urine drug screen was positive for oxycodone & benzodiazepine. Patient does use Percocet on a regular basis. Patient denies having benzodiazepines at home. Patient states primary care provider possibly gave her trazodone and takes it as needed. Patient does not recall last use of trazodone. Patient did have also secondary complaint of chest pain and upper extremity numbness in the emergency room but resolved. Cardiac enzymes, CBC were normal. On initial contact, patient was sitting in bed, no acute distress alert and oriented 3 with family in the room. Patient and nursing report no neurological changes within the last 24 hours. Patient also denies any seizure activity and nursing confirms no seizure activity in the last 24 hours. Objective - Vital Signs Vital signs: Vital Signs Temp 98.5 F 10/10/17 11:55 Pulse 58 L 10/10/17 12:08 Resp 18 10/10/17 12:08 BP 123/84 10/10/17 11:55 Pulse Ox 99 10/10/17 11:55 Intake & Output 10/09/17 10/10/17 10/10/17 18:59 06:59 18:59 Intake Total 400 500 Balance 400 500 Weight 78.471 kg Intake: Oral 400 500 Other: Voiding Method Toilet Toilet Toilet # Voids 1 - Exam Gen. appearance: Alert oriented 3 in no apparent distress Head: Atraumatic normocephalic, normal inspection Eyes: Well appearance, PERRL, EOMI. absent: Scleral icterus, conjunctival injection, nystagmus, periorbital swelling. Ear nose and throat: Normal exam, mucous membranes moist Neck: Normal inspection. Absent tenderness, lymphadenopathy Respiratory: No increased work of breathing. Cardiovascular: Regular rate, normal rhythm GIabdominal: No guarding, nontender. Extremities: Full range of motion, normal capillary refill, no tenderness, pedal edema, joint swelling, calf tenderness Neurological: Alert and oriented 3, cranial nerves II through XII intact, no unilateral lateralizing weakness, no seizure activity noted on physical exam, no pronator drift and no nystagmus. Psychological: Mood and affect appropriate setting - Labs CBC & Chem 7: 10/09/17 14:33 10/08/17 20:51 Assessment and Plan (1) Altered mental status Current Visit: No Status: Acute Code(s): R41.82 - ALTERED MENTAL STATUS, UNSPECIFIED SNOMED Code(s): 650680318 (2) Encephalopathy acute Current Visit: Yes Status: Acute Code(s): G93.40 - ENCEPHALOPATHY, UNSPECIFIED SNOMED Code(s): 17158017 (3) Headache Current Visit: Yes Status: Acute Code(s): R51 - HEADACHE SNOMED Code(s): 85980294 (4) Numbness of upper extremity Current Visit: Yes Status: Acute Code(s): R20.0 - ANESTHESIA OF SKIN SNOMED Code(s): 771547009 Plan: 1. Altered mental status Likely secondary to medication adverse effects. Urine drug screen positive for benzodiazepines and oxycodone. CT brain noted no acute process Carotid Doppler 10% stenosis EEG taken, report pending but cleared for discharge by neurologist Patient reports being back to baseline, no remaining neurological deficits, physical exam is noted. 2. Acute encephalopathy Secondary #1 above 3. Headache resolved 4. Numbness of upper extremity resolved STATUS: Patient cleared for discharge from a neurological standpoint. Advise patient to contact our office within 10-14 days for follow-up office visit. Feel free to contact our office with any questions I discussed the patients history, physical exam, diagnostic testing, lab work and imaging with Dr Piña prior to implementing the plan above. He agrees with the plan as implemented prior to implementation.
--- NOTE | 2017-10-10 15:53 | P.DS ---
Providers Date of admission: 10/08/17 22:48 Attending physician: Virginia Lyon Consults: 10/08/17 22:49 Consult Physician Routine Consulting Provider: [facility] Consult Reason/Comments: Syncopal episode?, CPR performed Do you want consulting provider notified?: Yes, Notify in am 10/09/17 14:59 Consult Physician Routine Consulting Provider: Swathi Piña Reason/Comments: headache, tingling in fingers Do you want consulting provider notified?: Yes Primary care physician: [facility] Hospital Course: This is a pleasant 57 years old female with past medical history of fibromyalgia , hyperlipidemia hypothyroidism, hysterectomy. Who presents because of syncope. Patient reports she had severe intense headache on the top of her head for unknown durations and she went to bed rest and the second thing she remembers is that there are the EMS people trying to do CPR for her and at bedside trying to wake her up. She thinks that she was lying 4 seconds but she wasn't sure. She was not sure if she has seizure-like activities however patient denies urine or bowel incontinence and no tongue biting, and there is no clear report of post-syncope confusion, patient states she has been under a lot of stress recently, including the of her parents. Patient reports she has several attacks of headaches about 2 to 3H days, she wasn't sure how long it last , but she states at least she has been having these headache attacks for about several weeks, associated with numbness in both of her fingers at times Patient denies blurred vision, difficulty in speech. She denies any weakness or numbness. She states her gait is at her baseline. During the syncope patient also reported chest tightness, however patient has been evaluated by carbide operator already and cleared her for discharge, pt has negative stress test on 10/09/2017 Also patient complains of pain in the right neck area . Patient had carotid duplex showing mild stenosis on both sides about 10%, she has negative brain CT for acute event. Chest x-ray: No acute cardiopulmonary process. Patient has been evaluated by neurologist for altered mental status, likely toxic encephalopathy and headache all resolved as well as upper extremity numbness which is also resolved. On the discharge day, patient denies chest pain. Patient had an EEG done, patient was cleared by neurology for discharge. Problem list and management plan was discussed with the patient. Patient was found stable and can be discharged home however she needs follow-up as outpatient. It is made with Dr. Vanegas office, her PCP, on 10/23/2017, at 2: 30 PM. patient was informed and she agrees with this appointment and timing. I discussed the case with Dr. Vanegas including the pending EEG results, and the right neck pain. GENERAL: The patient is alert and oriented x3, not in any acute distress. Well developed, well nourished. HEENT: Pupils are round and equally reacting to light. EOMI. No scleral icterus. No conjunctival pallor. Normocephalic, atraumatic. No pharyngeal erythema. No thyromegaly. CARDIOVASCULAR: S1 and S2 present. No murmurs, rubs, or gallops. PULMONARY: Chest is clear to auscultation, no wheezing or crackles. ABDOMEN: Soft, nontender, nondistended, normoactive bowel sounds. No palpable organomegaly. MUSCULOSKELETAL: No joint swelling or deformity. EXTREMITIES: No cyanosis, clubbing, or pedal edema. NEUROLOGICAL: Gross neurological examination did not reveal any focal deficits. SKIN: No rashes. Time spent more than 35 minutes Patient Condition at Discharge: Stable Plan - Discharge Summary New Discharge Prescriptions: No Action Cholecalciferol [Vitamin D3] 1,000 unit PO DAILY Levothyroxine Sodium [Synthroid] 25 mcg PO DAILY rOPINIRole HCL [Requip] 0.25 mg PO HS oxyCODONE-APAP 10-325MG [Percocet 10-325 mg] 1 tab PO Q6HR PRN PRN Reason: Pain Simvastatin [Zocor] 20 mg PO HS Multivitamins, Thera [Multivitamin (formulary)] 1 tab PO DAILY Cyanocobalamin [Vitamin B-12] 500 mcg PO DAILY Etodolac [Lodine] 400 mg PO BID Discharge Medication List Cholecalciferol [Vitamin D3] 1,000 unit PO DAILY 07/28/13 [History] Levothyroxine Sodium [Synthroid] 25 mcg PO DAILY 07/28/13 [History] rOPINIRole HCL [Requip] 0.25 mg PO HS 07/27/15 [History] Cyanocobalamin [Vitamin B-12] 500 mcg PO DAILY 10/08/17 [History] Multivitamins, Thera [Multivitamin (formulary)] 1 tab PO DAILY 10/08/17 [History ] Simvastatin [Zocor] 20 mg PO HS 10/08/17 [History] oxyCODONE-APAP 10-325MG [Percocet 10-325 mg] 1 tab PO Q6HR PRN 10/08/17 [History ]
--- NOTE | 2017-10-10 18:53 | EEG ---
ELECTROENCEPHALOGRAM REPORT DATE OF SERVICE: 10/10/2017. REASON FOR TESTING: Altered mental status. DESCRIPTION OF THE PROCEDURE: This EEG was performed using a 21 channel digital electroencephalograph, following international 10-20 system. DESCRIPTION OF THE RECORDING: From the beginning of the tracing, and with patient's eyes closed, the background rhythm was mostly consisting of 9 Hz alpha frequency in the posterior occipital leads. No obvious asymmetry is seen. Photic stimulation was performed with a good driving response seen. No pathological waves were elicited. Occasional muscle and movement artifacts are seen. The patient remains awake throughout the tracing. No epileptiform discharges were seen. Her EKG lead showed a regular rate and rhythm. INTERPRETATION: This awake EEG can be considered within normal limits. There was no asymmetry seen. No epileptiform discharges were noticed. The absence of epileptiform discharges does not rule out the diagnosis of epilepsy; therefore, clinical correlation is recommended. TIA / DELONTE: [id number] /
[2017-10-10] MEDS ORDERED: FAMOTIDINE 20 MG TAB PO SCH (21:00)
== END 2017-10-10 16:17 | disposition home or self-care (01) ==
LOC: EC 20:17 → 3OBS 22:48
PROVIDERS: ADMIT Hospitalist; ATTEND Hospitalist
DX: R55 Syncope and collapse (principal); R07.89 Other chest pain; E78.5 Hyperlipidemia, unspecified; M79.7 Fibromyalgia; F17.200 Nicotine dependence, unspecified, uncomplicated; E03.9 Hypothyroidism, unspecified; R51 Headache; M54.2 Cervicalgia; G89.4 Chronic pain syndrome; R20.0 Anesthesia of skin; G25.81 Restless legs syndrome; G93.40 Encephalopathy, unspecified; R41.82 Altered mental status, unspecified; F41.9 Anxiety disorder, unspecified; F32.9 Major depressive disorder, single episode, unspecified; Z90.710 Acquired absence of both cervix and uterus; Z80.0 Family history of malignant neoplasm of digestive organs; Z80.8 Family history of malignant neoplasm of other organs or systems; Z80.3 Family history of malignant neoplasm of breast; Z79.890 Hormone replacement therapy; Z79.899 Other long term (current) drug therapy; Z88.8 Allergy status to other drugs, medicaments and biological substances
CPT/HCPCS: 99285 ×2; 96365 ×2; 96361 ×2; 96372; 96375; 96376; 36415; 95816; 93005; 93306; 93351; 83880; 80053; 82550; 82553; 83605; 83735; 84484 ×2; 85025 ×2; 85610; 85730; 81001; 81025; 80306; 83520 ×2; 80320; 71046; 93880; 70450; G0378 ×3; J1250; J1644; J0131

== ENCOUNTER → 2018-05-06 | Outpatient (CLI) | payer OTHER ==
--- NOTE | 2018-05-07 13:02 | MM ---
Reason for exam: screening (asymptomatic). Last mammogram was performed 3 years and 9 months ago. History: Patient is postmenopausal. Family history of breast cancer in sister at age 43 and premenopausal breast cancer in mother at age 60. Physical Findings: A clinical breast exam by your physician is recommended on an annual basis and results should be correlated with mammographic findings. MG Screening Mammo w CAD Bilateral CC and MLO view(s) were taken. Prior study comparison: July 29, 2014, bilateral MG screening mammo w CAD. January 23, 2012, CAD bilateral diagnostic mammogram. The breast tissue is heterogeneously dense. This may lower the sensitivity of mammography. No significant changes when compared with prior studies. ASSESSMENT: Negative, BI-RAD 1 RECOMMENDATION: Routine screening mammogram of both breasts in 1 year.
== END | disposition home or self-care (01) ==
LOC: RADMAMWWP 15:00
PROVIDERS: ATTEND Family Medicine
DX: Z12.31 Encounter for screening mammogram for malignant neoplasm of breast (principal)
CPT/HCPCS: 77067

== ENCOUNTER → 2018-07-23 | Outpatient (CLI) | payer OTHER ==
--- NOTE | 2018-07-23 14:33 | P.STRESS ---
- Stress Test Note Stress Test Results/Findings: Exam Performed: stress echo exercise with con Exam Date: 07/23/18 Reason for Exam: Chest Pain Height: 5 ft 1 in Weight: 77.111 kg Protocol: Octavio Stage: 3 Duration of Exercise: 6:36 Resting Heart Rate: 69 Resting Blood Pressure: 132/81 Maximum Achieved Heart Rate: 142 Maximum Achieved Blood Pressure: 190/85 85% PMHR: 139 100% PMHR: 164 METS: 7.3 Technologist Comment: Stress Test Results/Findings: Baseline heart is 69 beats a minute, baseline blood pressure 132/81 mmHg Baseline for ECG shows sinus rhythm with normal cardiac intervals normal ST segments Patient exercised on a Octavio protocol for 6-1/2 minutes achieving a peak heart rate of 142 beats a minute No definite ECG evidence of ischemia Baseline 2-D echo which showed normal LV size and systolic function without segmental wall motion abnormalities At peak exercise is excellent augmentation of overall LV contractility without development of any wall motion abnormalities @Recovery regional and global LV systolic function remained normal Impression Average exercise capacity no ECG or echocardiographic evidence for ischemia at this stress level
== END | disposition home or self-care (01) ==
LOC: RADNMMAIN 08:55
PROVIDERS: ATTEND Family Medicine
DX: R07.89 Other chest pain (principal)
CPT/HCPCS: 93351

== ENCOUNTER → 2018-10-02 | Outpatient (CLI) | payer OTHER ==
--- NOTE | 2018-11-07 12:13 | EM ---
EVENT MONITOR This is a 30-day event monitor done for palpitations. Underlying rhythm is sinus. The patient had episodes of sinus tachycardia and at the time that she had a sinus tachycardia, she complained of symptoms, but the symptoms were not specified. The maximum heart rate was 153 beats per minute. The minimum heart rate was 46 beats per minute. CONCLUSIONS: This event monitor shows sinus rhythm with episodes of sinus tachycardia with which patient had symptoms. There were also sinus bradycardia episodes documented. MMODL / IJN: [id number] /
== END | disposition home or self-care (01) ==
LOC: RADECHMAIN 13:11
PROVIDERS: ATTEND Internal Medicine Cardiovascular Disease
DX: R00.2 Palpitations (principal)
CPT/HCPCS: 93270

== ENCOUNTER 2019-01-06 18:42 | Observation (INO) | payer OTHER ==
[2019-01-06] MEDS ORDERED: NITROGLYCERIN OINT 1 INCH/GM PACKET TOPICAL STA (19:04)
[2019-01-06] MEDS ORDERED: ONDANSETRON 4 MG/2 ML VIAL IVP STA (19:05)
--- NOTE | 2019-01-06 19:08 | ED ---
Chest Pain HPI - General Chief Complaint: Chest Pain Stated Complaint: Chest Pain Time Seen by Provider: 01/06/19 19:00 Source: patient, EMS Mode of arrival: EMS Limitations: no limitations - History of Present Illness Initial Comments: This 58-year-old white female presents with a complaint of some midsternal chest pain which is described as sharp. It seems to radiate into her back. She developed some left arm numbness as well. She states that this occurred shortly prior to arrival while sitting down watching TV. She denies any previous similar incidents. She had some nausea but denies any shortness of breath or palpitations. She denies any leg pain or swelling or history of DVT or PE. She apparently may have had an arrhythmia recently and had a implantable event monitor placed in her left chest approximately one month ago. Her last stress test was approximately 2 months ago and was negative. She has never had a heart catheterization. No other complaints or modifying factors. She states that she did present via EMS and received aspirin as well as some sublingual nitroglycerin with significant relief in her pain syndrome is essentially resolved. - Related Data Home Medications Medication Instructions Recorded Confirmed Levothyroxine Sodium [Synthroid] 25 mcg PO DAILY 07/28/13 01/06/19 rOPINIRole HCL [Requip] 0.25 mg PO HS 07/27/15 01/06/19 oxyCODONE-APAP 10-325MG [Percocet 1 tab PO QID 10/08/17 01/06/19 10-325 mg] Escitalopram [Lexapro] 20 mg PO DAILY 01/06/19 01/06/19 Methocarbamol [Robaxin] 750 mg PO TID 01/06/19 01/06/19 Simvastatin [Zocor] 40 mg PO HS 01/06/19 01/06/19 Allergies Allergy/AdvReac Type Severity Reaction Status Date / Time duloxetine HCl Allergy Rash/Hives Verified 01/06/19 18:47 [From Nita] Review of Systems ROS Statement: Those systems with pertinent positive or pertinent negative responses have been documented in the HPI. ROS Other: All systems not noted in ROS Statement are negative. Past Medical History Past Medical History: Fibromyalgia, Hyperlipidemia, Thyroid Disorder Additional Past Medical History / Comment(s): anxiety, History of Any Multi-Drug Resistant Organisms: None Reported Past Surgical History: Hysterectomy Past Anesthesia/Blood Transfusion Reactions: No Reported Reaction Past Psychological History: Anxiety, Depression Smoking Status: Current every day smoker Past Alcohol Use History: None Reported Past Drug Use History: None Reported - Past Family History Mother Family Medical History: Cancer Additional Family Medical History / Comment(s): stomach CA Father Family Medical History: Cancer Additional Family Medical History / Comment(s): Throat CA Sister(s) Family Medical History: Cancer Additional Family Medical History / Comment(s): Breast CA General Exam - General Exam Comments Initial Comments: GENERAL: The patient is well nourished and well hydrated. VITAL SIGNS: Heart rate, blood pressure, respiratory rate reviewed as recorded in nurse's notes. EYES: Pupils are round and reactive. Extraocular movements are intact. No conjunctival / lid redness or swelling. ENT: No external evidence of injury, swelling, or ecchymosis. Airway is patent. Throat is clear. NECK: Nontender. No swelling or evidence of injury. No subcutaneous emphysema. Trachea is midline. No thyroid mass. HEART: Regular rate and rhythm. Good peripheral pulses. LUNGS/CHEST: Breath sounds clear and equal bilaterally. No rales, rhonchi, or wheezes. No ecchymosis, subcutaneous emphysema, or tenderness. ABDOMEN: Abdomen soft without tenderness. No palpable masses or organomegaly. No peritoneal signs. No abdominal wall swelling or ecchymosis. EXTREMITIES: No extremity tenderness. Normal muscle tone and function. No thoracolumbar tenderness. No lower extremity edema. NEUROLOGIC: Sensation is grossly intact. Cranial nerve exam reveals face is symmetrical, tongue is midline, speech is clear. SKIN: No abrasions or ecchymosis is noted. No induration or masses noted. PSYCHIATRIC: Alert and oriented. Appropriate behavior and judgment. Limitations: no limitations Course Vital Signs 01/06/19 01/06/19 18:47 20:22 Temperature 98.8 F Pulse Rate 71 64 Respiratory 18 16 Rate Blood Pressure 141/112 144/79 O2 Sat by Pulse 95 98 Oximetry Chest Pain MDM - MDM The patient was seen and examined. All diagnostics are reviewed. An EKG is done and shows a normal sinus rhythm at a rate of 61. There is no acute ST-T wave changes noted. The [place] intervals 146, QRS duration is 86, and the QTC intervals 430. She did receive aspirin by EMS. She receives Nitropaste orally. She is in no distress upon arrival she did have significant relief with the sublingual nitroglycerin. The chest x-ray did not show any acute processes. The laboratory overall is unremarkable. The possibility of acute coronary syndrome certainly is plausible and it is felt as though she benefit from admission for further workup and treatment. Case is discussed with Dr. Ferreira and he is agreeable with admission with cardiology to consult. Disposition Clinical Impression: Chest pain, Unstable angina Disposition: ADMITTED IP TO THIS HOSP Condition: Fair Is patient prescribed a controlled substance at d/c from ED?: No Referrals: Khanh Vanegas DO [Primary Care Provider] - 1-2 days Time of Disposition: 21:52 Decision Date: 01/06/19 Decision Time: 21:52
[2019-01-06 20:09] LABS: Basophils % (A) 1 %; Eosinophils # (A) 0.1 k/uL (0-0.7); Eosinophils % (A) 1 %; HGB 14.1 gm/dL (11.4-16.0); Lymphocytes # (A) 2.4 k/uL (1.0-4.8); Lymphocytes % (A) 28 %; MCH 29.9 pg (25.0-35.0); MCHC 32.2 g/dL (31.0-37.0); MCV 92.9 fL (80.0-100.0); Mean Platelet Volume 5.7; Monocytes # (A) 0.4 k/uL (0-1.0); Monocytes % (A) 5 %; Neutrophils # (A) 5.5 k/uL (1.3-7.7); Neutrophils % (A) 63 %; Platelet Count 396 k/uL (150-450); RBC 4.73 m/uL (3.80-5.40); RDW 13.7 % (11.5-15.5); WBC 8.7 k/uL (3.8-10.6)
[2019-01-06 20:14] LABS: D-Dimer 0.44 mg/L FEU (<0.60); INR 0.9 (<1.2); Partial Thromboplastin Time 24.2 sec (22.0-30.0); Prothrombin Time 10.2 sec (9.0-12.0)
[2019-01-06 20:19] LABS: ALT 25 U/L (9-52); AST 24 U/L (14-36); African American GFR (CKD) >90 (>60 ml/min/1.73 sqM); Albumin 4.5 g/dL (3.5-5.0); Alkaline Phosphatase 87 U/L (38-126); Anion Gap 9 mmol/L; Blood Urea Nitrogen 11 mg/dL (7-17); Calcium 9.9 mg/dL (8.4-10.2); Carbon Dioxide 23 mmol/L (22-30); Chloride 110 mmol/L (98-107); Glucose 101 mg/dL (74-99); Non-African American GFR(CKD) >90 (>60 ml/min/1.73 sqM); Potassium 4.4 mmol/L (3.5-5.1); Sodium 142 mmol/L (137-145); Total Bilirubin 0.5 mg/dL (0.2-1.3); Total Protein 7.8 g/dL (6.3-8.2)
--- NOTE | 2019-01-06 21:31 | XR ---
EXAMINATION TYPE: XR chest 2V DATE OF EXAM: 01/06/2019 COMPARISON: 10/08/2017 INDICATION: Chest pain TECHNIQUE: Single frontal view of the chest is obtained. FINDINGS: The heart size is normal. The pulmonary vasculature is normal. The lungs are clear. Electronic Recorder over the left chest. IMPRESSION: 1. No acute pulmonary process.
[2019-01-06] MEDS ORDERED: METHOCARBAMOL 750 MG TAB PO STA (21:47)
[2019-01-06] MEDS ORDERED: oxyCODONE-APAP 10-325MG 1 EACH TAB PO STA (21:48)
[2019-01-06] MEDS ORDERED: ACETAMINOPHEN TAB 325 MG TAB PO PRN (21:53)
[2019-01-06] MEDS ORDERED: NITROGLYCERIN SL TABS 0.4 MG TAB SUBLINGUAL PRN (21:53)
[2019-01-06] MEDS: oxyCODONE-APAP 10-325MG 1 EACH TAB PO SCH (22:28)
[2019-01-06] MEDS: METHOCARBAMOL 750 MG TAB PO SCH (22:34)
[2019-01-06] MEDS: NICOTINE 21MG/24HR PATCH TRANSDERM SCH (22:34)
[2019-01-07] MEDS: NITROGLYCERIN OINT 1 INCH/GM PACKET TOPICAL SCH ×2 (02:58→07:58)
[2019-01-07] MEDS ORDERED: LEVOTHYROXINE 25 MCG TAB PO SCH (06:30)
[2019-01-07 08:03] LABS: Cholesterol 178 mg/dL (<200); HDL Cholesterol 46 mg/dL (40-60); LDL Cholesterol,Calculated 102 mg/dL (0-99); Triglycerides 150 mg/dL (<150)
[2019-01-07 08:06] VITALS: BP 149/88; PULSE 63; RESP 20; TEMP 98.1
[2019-01-07] MEDS: METHOCARBAMOL 750 MG TAB PO SCH (08:08)
[2019-01-07] MEDS: oxyCODONE-APAP 10-325MG 1 EACH TAB PO SCH ×2 (08:21→13:14)
[2019-01-07] MEDS: NICOTINE 21MG/24HR PATCH TRANSDERM SCH (08:43)
[2019-01-07] MEDS ORDERED: ENOXAPARIN 40 MG/0.4 ML SYRINGE SQ SCH (09:00)
[2019-01-07] MEDS ORDERED: ESCITALOPRAM 20 MG TAB PO SCH (09:00)
[2019-01-07] MEDS ORDERED: ASPIRIN 325 MG TAB PO SCH (09:00)
--- NOTE | 2019-01-07 13:01 | ECHOF ---
Referral Reason:cp MEASUREMENTS -------- HEIGHT: 154.9 cm WEIGHT: 81.6 kg BP: 141/78 RVIDd: 2.6 cm (< 3.3) IVSd: 1.2 cm (0.6 - 1.1) LVIDd: 4.1 cm (3.9 - 5.3) LVPWd: 1.2 cm (0.6 - 1.1) IVSs: 1.5 cm LVIDs: 2.8 cm LVPWs: 1.8 cm LAESV Index (A-L): 25.93 ml/m Ao Diam: 2.9 cm (2.0 - 3.7) AV Cusp: 2.0 cm (1.5 - 2.6) MV EXCURSION: 13.341 mm (> 18.000) MV EF SLOPE: 65 mm/s (70 - 150) EPSS: 0.7 cm MV E David: 0.87 m/s MV DecT: 197 ms MV A David: 0.76 m/s MV E/A Ratio: 1.14 TAPSE: 17.70 mm FINDINGS -------- Sinus rhythm. This was a technically adequate study. The left ventricular size is normal. There is borderline concentric left ventricular hypertrophy. Overall left ventricular systolic function is normal with, an EF between 60 - 65 %. The right ventricle is normal in size. Normal LA size by volume 22+/-6 ml/m2. The right atrium is normal in size. Lipomatous Hypertrophy of the atrial septum is present The aortic valve is trileaflet and appears structurally normal. The mitral valve is normal. The tricuspid valve appears structurally normal. The pulmonic valve was not well visualized. The aortic root size is normal. Normal inferior vena cava with normal inspiratory collapse consistent with estimated right atrial pre ssure of 5 mmHg. There is no pericardial effusion. CONCLUSIONS -------- 1. Sinus rhythm. 2. This was a technically adequate study. 3. The left ventricular size is normal. 4. There is borderline concentric left ventricular hypertrophy. 5. Overall left ventricular systolic function is normal with, an EF between 60 - 65 %. 6. The right ventricle is normal in size. 7. Normal LA size by volume 22+/-6 ml/m2. 8. The right atrium is normal in size. 9. Lipomatous Hypertrophy of the atrial septum is present 10. The aortic valve is trileaflet and appears structurally normal. 11. The mitral valve is normal. 12. The tricuspid valve appears structurally normal. 13. The pulmonic valve was not well visualized. 14. The aortic root size is normal. 15. Normal inferior vena cava with normal inspiratory collapse consistent with estimated right atrial pressure of 5 mmHg. 16. There is no pericardial effusion. PLASTIC MOULD MAKER: Danica Briggs RDCS
--- NOTE | 2019-01-07 14:04 | P.CRDCN ---
History of Present Illness History of present illness: This is a pleasant 58 showed female past medical history significant for fibromyalgia, dyslipidemia, palpitations with loop recorder implantation, chronic nicotine dependence, anxiety and depression. She denies prior history of coronary artery disease she follows with a intelligence engineer at [facility]. We have been asked to see her in consultation secondary to chest discomfort. She states yesterday while sitting down watching television she felt a sharp needlelike pain in the left precordial region. It felt like someone was poking her. This was associated with palpitations and discomfort in the left arm. She recently established with her intelligence engineer and underwent loop recorder implantation. She recently underwent a stress test here at the hospital in July 2018 for similar type symptoms that was a stress echocardiogram and was negative for stress-induced ischemia. She also wore an event monitor that showed episodes of sinus tachycardia heart rate Is high as the 150s. She was symptomatic with similar symptoms that she experienced yesterday. She has had no further symptoms of chest discomfort since coming to the hospital. Echocardiogram obtained and reviewed. Normal LV systolic function with ejection fraction 60-65% hypertrophy of the atrial septum present. EKG sinus mechanism with nonspecific T-wave abnormalities. Telemetry tracings unremarkable. Chest x-ray is negative for an acute cardiopulmonary process. Laboratory data reviewed, CBC unremarkable, d-dimer 0.44, sodium 142, potassium 4.4, creatinine 0.61, magnesium 2.0, cardiac enzymes negative 3, LDL 102, HDL 46 and triglycerides 150. Current daily cardiac medications include simvastatin 40 mg daily. At the time of my exam: CONSTITUTIONAL: Denies fever. Denies chills. EYES: Denies blurred vision. Denies vision changes. Denies eye pain. EARS, NOSE, MOUTH & THROAT: Denies headache. Denies sore throat. Denies ear pain. CARDIOVASCULAR: Denies chest pain. Denies shortness of breath. Denies orthopnea. Denies PND. Denies palpitations. RESPIRATORY: Denies cough. GASTROINTESTINAL: Denies abdominal pain. Denies diarrhea. Denies constipation. Denies nausea. Denies vomiting. MUSCULOSKELETAL: Denies myalgias. INTEGUMENTARY: Denies pruitis. Denies rash. NEUROLOGIC: Denies numbness. Denies tingling. Denies weakness. PSYCHIATRIC: Denies anxiety. Denies depression. ENDOCRINE: Denies fatigue. Denies weight change. Denies polydipsia. Denies polyurina. GENITOURINARY: Denies burning, hematuria or urgency with micturation. HEMATOLOGIC: Denies history of anemia. Denies bleeding. Blood pressure 149/88 heart rate 63 afebrile maintaining oxygen saturation on room air GENERAL: This is a 58-year-old female in no apparent distress at the time of my examination. HEENT: Head is atraumatic, normocephalic. Pupils are equal, round. Sclerae anicteric. Conjunctivae are clear. Mucous membranes of the mouth are moist. Neck is supple. There is no jugular venous distention. No carotid bruit is heard. LUNGS: Clear to auscultation no wheezes, rales or rhonchi. No chest wall tenderness is noted on palpation or with deep breathing. HEART: Regular rate and rhythm without murmurs, rubs or gallops. S1 and S2 heard. ABDOMEN: Soft, nontender. Bowel sounds are heard. No organomegaly noted. EXTREMITIES: No evidence of peripheral edema and no calf tenderness noted. VASCULAR: Radial and dorsalis pedis pulses palpated, no evidence of clubbing. NEUROLOGIC: Patient is awake, alert and oriented x3. ASSESSMENT Chest pain and palpitations, resolved and asymptomatic since admission. An acute coronary event has been ruled out. History of frequent palpitations, loop recorder in place. Dyslipidemia Fibromyalgia Chronic nicotine dependence Obesity, BMI 34 PLAN An acute coronary event has been ruled out. Recent stress testing reveals no evidence of stress-induced ischemia. Symptoms are atypical to be related to angina. Consider underlying arrhythmia. Interrogate loop recorder. If unremarkable she may follow with her primary intelligence engineer at an already scheduled appointment for tomorrow. Thank you kindly for this consultation. Nurse Practitioner note has been reviewed, I agree with a documented findings and plan of care. Patient was seen and examined. Past Medical History Past Medical History: Fibromyalgia, Hyperlipidemia, Hypertension, Syncope, Th yroid Disorder Additional Past Medical History / Comment(s): Pt has a loop recorder in place d/t arrhythmia being worked up, hypothyroid, migraines, migraine with syncope, chronic back pain. History of Any Multi-Drug Resistant Organisms: None Reported Past Surgical History: Hysterectomy Additional Past Surgical History / Comment(s): Loop recorder. Past Anesthesia/Blood Transfusion Reactions: No Reported Reaction Smoking Status: Current every day smoker - Past Family History Mother Family Medical History: Cancer Additional Family Medical History / Comment(s): Mother of stomach CA at the age of 78yrs. Father Family Medical History: Cancer Additional Family Medical History / Comment(s): Father of throat CA at the age of 81 or 82 yrs. Sister(s) Family Medical History: Cancer Additional Family Medical History / Comment(s): Breast CA Medications and Allergies Home Medications Medication Instructions Recorded Confirmed Type RX: Levothyroxine Sodium 25 mcg PO DAILY 07/28/13 01/06/19 History [Synthroid] RX: rOPINIRole HCL [Requip] 0.25 mg PO HS 07/27/15 01/06/19 History RX: oxyCODONE-APAP 10-325MG 1 tab PO QID 10/08/17 01/06/19 History [Percocet 10-325 mg] Escitalopram [Lexapro] 20 mg PO DAILY 01/06/19 01/06/19 History Methocarbamol [Robaxin] 750 mg PO TID 01/06/19 01/06/19 History Simvastatin [Zocor] 40 mg PO HS 01/06/19 01/06/19 History Allergies Allergy/AdvReac Type Severity Reaction Status Date / Time duloxetine HCl Allergy Rash/Hives Verified 01/06/19 18:47 [From [facility]] Physical Exam Vitals: Vital Signs Temp Pulse Resp BP Pulse Ox 01/07/19 08:00 98.1 F 63 20 149/88 99 01/07/19 06:58 98 F 70 18 139/90 94 L 01/07/19 02:40 98 F 58 L 18 141/78 97 01/06/19 22:35 97.8 F 70 18 144/79 98 01/06/19 20:22 64 16 144/79 98 01/06/19 18:47 98.8 F 71 18 141/112 95 Intake and Output 01/06/19 01/07/19 01/07/19 22:59 06:59 14:59 Other: Weight 81.647 kg Results 01/06/19 19:11 01/06/19 19:11 Cardiac Enzymes 01/06/19 01/06/19 01/07/19 Range/Units 19:11 19:11 01:54 AST 24 (14-36) U/L Troponin I <0.012 <0.012 (0.000-0.034) ng/mL 01/07/19 Range/Units 07:29 AST (14-36) U/L Troponin I <0.012 (0.000-0.034) ng/mL Coagulation 01/06/19 Range/Units 19:11 PT 10.2 (9.0-12.0) sec APTT 24.2 (22.0-30.0) sec Lipids 01/07/19 Range/Units 07:29 Triglycerides 150 H (<150) mg/dL Cholesterol 178 (<200) mg/dL HDL Cholesterol 46 (40-60) mg/dL CBC 01/06/19 Range/Units 19:11 WBC 8.7 (3.8-10.6) k/uL RBC 4.73 (3.80-5.40) m/uL Hgb 14.1 (11.4-16.0) gm/dL Hct 44.0 (34.0-46.0) % Plt Count 396 (150-450) k/uL Comprehensive Metabolic Panel 01/06/19 Range/Units 19:11 Sodium 142 (137-145) mmol/L Potassium 4.4 (3.5-5.1) mmol/L Chloride 110 H (98-107) mmol/L Carbon Dioxide 23 (22-30) mmol/L BUN 11 (7-17) mg/dL Creatinine 0.61 (0.52-1.04) mg/dL Glucose 101 H (74-99) mg/dL Calcium 9.9 (8.4-10.2) mg/dL AST 24 (14-36) U/L ALT 25 (9-52) U/L Alkaline Phosphatase 87 (38-126) U/L Total Protein 7.8 (6.3-8.2) g/dL Albumin 4.5 (3.5-5.0) g/dL Current Medications Generic Name Dose Route Start Last Admin Trade Name Freq PRN Reason Stop Dose Admin Acetaminophen 650 mg 01/06/19 21:53 01/07/19 05:15 Tylenol Tab PO 650 mg Q4HR PRN Administration Mild Pain Aspirin 81 mg 01/08/19 09:00 Aspirin PO DAILY [facility] Atorvastatin Calcium 20 mg 01/07/19 21:00 Lipitor PO HS [facility] Enoxaparin Sodium 40 mg 01/07/19 09:00 01/07/19 08:06 Lovenox SQ 40 mg DAILY JAKY Administration Escitalopram Oxalate 20 mg 01/07/19 09:00 01/07/19 08:06 Lexapro PO 20 mg DAILY JAKY Administration Levothyroxine Sodium 25 mcg 01/07/19 06:30 01/07/19 08:07 Synthroid PO 25 mcg DAILY@0630 JAKY Administration Methocarbamol 750 mg 01/06/19 22:00 01/07/19 08:08 Robaxin PO 750 mg TID JAKY Administration Nicotine 1 patch 01/06/19 22:00 01/07/19 08:43 Habitrol 21mg/24hr Patch TRANSDERM 1 patch DAILY JAKY Administration Nitroglycerin 0.4 mg 01/06/19 21:53 Nitrostat SUBLINGUAL Q5M PRN Chest Pain Oxycodone/Acetaminophen 1 each 01/06/19 22:00 01/07/19 13:14 Percocet 10-325 PO 1 each QID JAKY Administration Ropinirole HCl 0.25 mg 01/07/19 21:00 Requip PO HS [facility] Intake and Output 01/06/19 01/07/19 01/07/19 22:59 06:59 14:59 Other: Weight 81.647 kg 01/06/19 19:11 01/06/19 19:11
[2019-01-07] MEDS ORDERED: ATORVASTATIN 20 MG TAB PO SCH (21:00)
[2019-01-08] MEDS ORDERED: ASPIRIN 81 MG PO SCH (09:00)
--- NOTE | 2019-01-12 00:46 | P.HPIM ---
History of Present Illness H&P Date: 01/07/19 Chief Complaint: Sharp chest pain History of presenting complaint: This is a pleasant 58-year-old female patient of Dr. sharp. Chronic stable medical conditions include fibromyalgia, hyperlipidemia, chronic back pain, hypertension, loop recorder for last 1 month for having episodes of fast heart rate off and on. Patient was sitting presented with midsternal sharp pain needlelike. Also the heart was pounding. Some nausea. No fever no chills. 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 No cough. No respiratory symptoms otherwise. Patient is a smoker. Pain did not radiate to the neck around. Not related to exertion. 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 EYES: Pupils equal. Conjunctiva normal. HEENT: External appearance of nose and ears normal, oral cavity grossly normal. NECK: JVD not raised; masses not palpable. HEART: First and second heart sounds are normal; no edema. LUNGS: Respiratory rate normal; clear to auscultation. ABDOMEN: Soft, nontender, liver spleen not palpable, no masses palpable. PSYCH: Alert and oriented x3; mood and affect normal. NEUROLOGICAL: Cranial nerves grossly intact; no facial asymmetry, power and sensation grossly intact. LYMPHATICS: No lymph nodes palpable in the axilla and neck INVESTIGATIONS, reviewed in the clinical context: White count 8.7 hemoglobin 14.1 platelets 396 potassium 4.4 bun 11 creatinine 0.61 Troponin I 3 negative, LDL-102 EKG tracing personally reviewed by me-some flipped T waves, normal sinus rhythm Chest x-ray film personally reviewed by me-lung juarez clear Assessment: -Anterior chest wall pain somewhat atypical with cardiac risk factors including hypertension, hyperlipidemia. -Chronic fibromyalgia -Hyperlipidemia -Hypothyroid -Essential hypertension -Depression and anxiety not otherwise specified on Lexapro Plan: Serial cardiac is as ordered. Home medications reviewed. Cardiology was consulted. They did order 2-D echocardiogram. Past Medical History Past Medical History: Fibromyalgia, Hyperlipidemia, Hypertension, Syncope, Thyroid Disorder Additional Past Medical History / Comment(s): Pt has a loop recorder in place d/t arrhythmia being worked up, hypothyroid, migraines, migraine with syncope, chronic back pain. History of Any Multi-Drug Resistant Organisms: None Reported Past Surgical History: Hysterectomy Additional Past Surgical History / Comment(s): Loop recorder. Past Anesthesia/Blood Transfusion Reactions: No Reported Reaction Smoking Status: Current every day smoker - Past Family History Mother Family Medical History: Cancer Additional Family Medical History / Comment(s): Mother of stomach CA at the age of 78yrs. Father Family Medical History: Cancer Additional Family Medical History / Comment(s): Father of throat CA at the age of 81 or 82 yrs. Sister(s) Family Medical History: Cancer Additional Family Medical History / Comment(s): Breast CA Medications and Allergies Home Medications Medication Instructions Recorded Confirmed Type Levothyroxine Sodium [Synthroid] 25 mcg PO DAILY 07/28/13 01/06/19 History rOPINIRole HCL [Requip] 0.25 mg PO HS 07/27/15 01/06/19 History oxyCODONE-APAP 10-325MG [Percocet 1 tab PO QID 10/08/17 01/06/19 History 10-325 mg] Escitalopram [Lexapro] 20 mg PO DAILY 01/06/19 01/06/19 History Methocarbamol [Robaxin] 750 mg PO TID 01/06/19 01/06/19 History Simvastatin [Zocor] 40 mg PO HS 01/06/19 01/06/19 History Aspirin 81 mg PO DAILY chew 01/07/19 Rx Nicotine 21Mg/24Hr Patch [Habitrol] 1 patch TRANSDERM DAILY #14 patch 01/07/19 Rx Allergies Allergy/AdvReac Type Severity Reaction Status Date / Time duloxetine HCl Allergy Rash/Hives Verified 01/06/19 18:47 [From [facility]] Physical Exam Vitals: Vital Signs Temp Pulse Resp BP Pulse Ox 01/07/19 08:00 98.1 F 63 20 149/88 99 01/07/19 06:58 98 F 70 18 139/90 94 L 01/07/19 02:40 98 F 58 L 18 141/78 97 01/06/19 22:35 97.8 F 70 18 144/79 98 01/06/19 20:22 64 16 144/79 98 01/06/19 18:47 98.8 F 71 18 141/112 95 Intake and Output 01/06/19 01/07/19 01/07/19 22:59 06:59 14:59 Other: Weight 81.647 kg Results CBC & Chem 7: 01/06/19 19:11 01/06/19 19:11 Labs: Abnormal Lab Results - Last 24 Hours (Table) 01/06/19 01/07/19 Range/Units 19:11 07:29 Chloride 110 H (98-107) mmol/L Glucose 101 H (74-99) mg/dL Triglycerides 150 H (<150) mg/dL LDL Cholesterol, Calc 102 H (0-99) mg/dL Thrombosis Risk Factor Assmnt - Choose All That Apply Any of the Below Risk Factors Present?: Yes Each Factor Represents 1 point: Age 41-60 years, Obesity (BMI >25) Other Risk Factors: No Other congenital or acquired thrombophilia - If yes, enter type in comment: No Thrombosis Risk Factor Assessment Total Risk Factor Score: 2 Thrombosis Risk Factor Assessment Level: Low Risk
--- NOTE | 2019-01-12 00:49 | P.DS ---
Providers Date of admission: 01/06/19 21:53 Expected date of discharge: 01/07/19 Attending physician: Waldo Ferreira Consults: 01/06/19 21:53 Consult Physician Urgent Consulting Provider: Roberto Lebron Consult Reason/Comments: cp Do you want consulting provider notified?: Yes Primary care physician: [facility] Course: Chief Complaint: Sharp chest pain History of presenting complaint: This is a pleasant 58-year-old female patient of Dr. vanegas. Chronic stable medical conditions include fibromyalgia, hyperlipidemia, chronic back pain, hypertension, loop recorder for last 1 month for having episodes of fast heart rate off and on. Patient was sitting presented with midsternal sharp pain needlelike. Also the heart was pounding. Some nausea. No fever no chills. 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 No cough. No respiratory symptoms otherwise. Patient is a smoker. Pain did not radiate to the neck around. Not related to exertion. Pain did have a recent stress test that was negative for ischemia. Loop recorder could not be interrogated. Patient was okayed by cardiology to be discharged. Consultation: Dr. Lebron from cardiology Physical examination: VITAL SIGNS: 98, 70, 18, 139/90, 94% room air GENERAL: Sitting up, comfortable EYES: Pupils equal. Conjunctiva normal. HEENT: External appearance of nose and ears normal, oral cavity grossly normal. NECK: JVD not raised; masses not palpable. HEART: First and second heart sounds are normal; no edema. LUNGS: Respiratory rate normal; clear to auscultation. ABDOMEN: Soft, nontender, liver spleen not palpable, no masses palpable. PSYCH: Alert and oriented x3; mood and affect normal. INVESTIGATIONS, reviewed in the clinical context: White count 8.7 hemoglobin 14.1 platelets 396 potassium 4.4 bun 11 creatinine 0.61 Troponin I 3 negative, LDL-102 EKG tracing personally reviewed by me-some flipped T waves, normal sinus rhythm Chest x-ray film personally reviewed by me-lung juarez clear 2-D echo-EF 60-65% Assessment: -Anterior chest wall pain somewhat atypical with cardiac risk factors including hypertension, hyperlipidemia. -Chronic fibromyalgia -Hyperlipidemia -Hypothyroid -Essential hypertension -Depression and anxiety not otherwise specified on Lexapro Plan: Disposition home Patient Condition at Discharge: Fair Plan - Discharge Summary Discharge Rx Participant: No New Discharge Prescriptions: New Aspirin 81 mg PO DAILY chew Nicotine 21Mg/24Hr Patch [Habitrol] 1 patch TRANSDERM DAILY #14 patch Continue Levothyroxine Sodium [Synthroid] 25 mcg PO DAILY rOPINIRole HCL [Requip] 0.25 mg PO HS oxyCODONE-APAP 10-325MG [Percocet 10-325 mg] 1 tab PO QID Escitalopram [Lexapro] 20 mg PO DAILY Simvastatin [Zocor] 40 mg PO HS Methocarbamol [Robaxin] 750 mg PO TID Discharge Medication List Levothyroxine Sodium [Synthroid] 25 mcg PO DAILY 07/28/13 [History] rOPINIRole HCL [Requip] 0.25 mg PO HS 07/27/15 [History] oxyCODONE-APAP 10-325MG [Percocet 10-325 mg] 1 tab PO QID 10/08/17 [History] Escitalopram [Lexapro] 20 mg PO DAILY 01/06/19 [History] Methocarbamol [Robaxin] 750 mg PO TID 01/06/19 [History] Simvastatin [Zocor] 40 mg PO HS 01/06/19 [History] Aspirin 81 mg PO DAILY chew 01/07/19 [Rx] Nicotine 21Mg/24Hr Patch [Habitrol] 1 patch TRANSDERM DAILY #14 patch 01/07/19 [Rx] Follow up Appointment(s)/Referral(s): Khanh Vanegas DO [Primary Care Provider] - 1-2 days Activity/Diet/Wound Care/Special Instructions: Call [employer] [facility] for appointment tomorrow.
== END 2019-01-07 15:52 ==
LOC: EC 18:42 → 1SOBS 21:53 → UNDODISOB 01-07 15:09
PROVIDERS: ADMIT Hospitalist; ATTEND Hospitalist
DX: R07.89 Other chest pain (principal); R00.2 Palpitations; R00.0 Tachycardia, unspecified; R20.0 Anesthesia of skin; I10 Essential (primary) hypertension; M79.7 Fibromyalgia; E78.5 Hyperlipidemia, unspecified; E03.9 Hypothyroidism, unspecified; F17.200 Nicotine dependence, unspecified, uncomplicated; G89.29 Other chronic pain; M54.9 Dorsalgia, unspecified; M25.50 Pain in unspecified joint; R11.0 Nausea; F17.210 Nicotine dependence, cigarettes, uncomplicated; F32.9 Major depressive disorder, single episode, unspecified; F41.9 Anxiety disorder, unspecified; G43.909 Migraine, unspecified, not intractable, without status migrainosus; R55 Syncope and collapse; E66.9 Obesity, unspecified; Z68.34 Body mass index [BMI] 34.0-34.9, adult; Z79.890 Hormone replacement therapy; Z79.891 Long term (current) use of opiate analgesic; Z79.899 Other long term (current) drug therapy; Z88.8 Allergy status to other drugs, medicaments and biological substances; Z90.710 Acquired absence of both cervix and uterus; Z95.818 Presence of other cardiac implants and grafts; Z80.0 Family history of malignant neoplasm of digestive organs; Z80.8 Family history of malignant neoplasm of other organs or systems; Z80.3 Family history of malignant neoplasm of breast
CPT/HCPCS: 96372; 96374; 99285; 36415; 93005 ×2; 93306; 85379; 80061; 80053; 83735; 84484 ×2; 85025; 85610; 85730; 71046; G0378 ×2; S4990 ×2; J2405; J1650

== ENCOUNTER → 2019-03-03 | Outpatient (CLI) | payer OTHER ==
[2019-03-03 12:37] LABS: Basophils % (A) 0 %; Eosinophils # (A) 0.1 k/uL (0-0.7); Eosinophils % (A) 1 %; HCT 46.5 % (34.0-46.0); HGB 14.9 gm/dL (11.4-16.0); Lymphocytes # (A) 2.6 k/uL (1.0-4.8); Lymphocytes % (A) 28 %; MCH 29.8 pg (25.0-35.0); Mean Platelet Volume 7.1; Monocytes # (A) 0.2 k/uL (0-1.0); Monocytes % (A) 3 %; Neutrophils % (A) 65 %; Platelet Count 392 k/uL (150-450); RDW 13.4 % (11.5-15.5); WBC 9.3 k/uL (3.8-10.6)
[2019-03-03 12:53] LABS: Appearance,Urine Cloudy (Clear); Bacteria,Urine Rare /hpf; Bilirubin,Urine Negative (Negative); Blood,Urine Trace (Negative); Color,Urine Yellow; Glucose,Urine (UA) Negative (Negative); Ketones,Urine Negative (Negative); Leukocyte Esterase,Urine Large (Negative); Mucus,Urine Many /hpf; Nitrite,Urine Negative (Negative); PH, Urine 5.5 (5.0-8.0); Protein,Urine Trace (Negative); RBC,Urine 5 /hpf (0-5); Specific Gravity,Urine 1.032 (1.001-1.035); Squamous Epithelial Cell,Urine 5 /hpf (0-4); WBC,Urine 3 /hpf (0-5)
[2019-03-03 17:27] LABS: African American GFR (CKD) 95.5 (60.0-200.0); Albumin 4.9 g/dL (3.80-4.90); Albumin/Globulin Ratio 1.96 (1.60-3.17); Anion Gap 10.7 mmol/L (4.00-12.00); BUN/Creat Ratio 27.5 Ratio (12.00-20.00); Calcium 10.3 mg/dL (8.7-10.3); Carbon Dioxide 25.3 mmol/L (21.6-31.8); Chol/HDL Ratio 3.98; Globulin 2.5 g/dL (1.6-3.3); LDL Cholesterol,Calculated 95.6 mg/dL (0.0-131.0); Non-African American GFR(CKD) 82.4 (60.0-200.0); Potassium 4.4 mmol/L (3.5-5.5); Total Bilirubin 0.2 mg/dL (0.3-1.2); Total Protein 7.4 g/dL (6.2-8.2); VLDL Calculation 26.4 mg/dL (5.00-40.00)
[2019-03-03 17:36] LABS: T4, Free (Free Thyroxine) 0.9 ng/dL (0.80-1.80)
[2019-03-03 19:30] LABS: Hemoglobin A1C 6.4 % (4.0-6.0)
== END | disposition home or self-care (01) ==
LOC: LABWHC1 11:53
PROVIDERS: ATTEND Internal Medicine Cardiovascular Disease
DX: Z00.00 Encounter for general adult medical examination without abnormal findings (principal); R07.9 Chest pain, unspecified; E03.9 Hypothyroidism, unspecified; E66.9 Obesity, unspecified
CPT/HCPCS: 36415; 80053; 80061; 81001; 82306; 82977; 83036; 83690; 83880; 84439; 84443; 84481; 85025

== ENCOUNTER → 2020-10-28 | Day surgery (SDC) | payer OTHER ==
[2020-10-26 13:10] VITALS: BMI 33.0
[~2020-10-28] MED LIST: ACETAMINOPHEN TAB 325 MG TAB PO PRN; LACTATED RINGERS 1,000 ML IV SCH; LIDOCAINE 1% INJ 10MG/ML (20 ML MDV) ONE; LIDOCAINE 1% INJ 10MG/ML (20 ML MDV) SQ ONE; PROPOFOL 10 MG/ML 20 ML VIAL IV ONE; SODIUM CHLORIDE 0.9% 1,000 ML IV SCH
[2020-10-28 11:00] VITALS: RESP 18; TEMP 98.7
--- NOTE | 2020-10-28 13:03 | P.PCN ---
Date of Procedure: 10/28/20 Preoperative Diagnosis: History of loop recorder insertion Postoperative Diagnosis: Removal of the loop recorder Procedure(s) Performed: Removal of the recorder at the request of the patient Description of Procedure: Patient was brought to the lab in a fasting state. She was prepped and draped in the usual fashion. Patient was given prophylactic antibiotics. Patient was given IV anesthesia by department of anesthesia, at the request of the patient. The device is identified. An incision was made over the medial aspect of the device was deepened and the device was exposed. The device had is freed from adhesions and the device was pulled out without any difficulty. This device was manufactured by [employer].The incision was closed with 2 silk sutures. Patient tolerated procedure well. Final impression: Successful removal of loop recorder. Plan: Patient will be discharged home. She will keep the incision dry until seen in the office with continue current medical therapy. Follow-up in the office in one week
[2020-10-28 14:03] VITALS: BP 153/78; PULSE 48
== END | disposition home or self-care (01) ==
LOC: CATHEP 10:27
PROVIDERS: ATTEND Internal Medicine Cardiovascular Disease
DX: Z95.818 Presence of other cardiac implants and grafts (principal); I10 Essential (primary) hypertension; E78.5 Hyperlipidemia, unspecified; R00.2 Palpitations; E07.9 Disorder of thyroid, unspecified; M79.7 Fibromyalgia; Z87.891 Personal history of nicotine dependence
CPT/HCPCS: 33286; J0690; J2001; J2704

== ENCOUNTER 2021-01-05 08:28 | Day surgery (SDC) | payer OTHER ==
[2021-01-04 09:23] VITALS: BMI 33.0
[~2021-01-05 08:28] MED LIST changes: -ACETAMINOPHEN TAB 325 MG TAB PO PRN; +LIDOCAINE 1% (10MG/ML) FOR IV START INTRADERMA PRN; -LIDOCAINE 1% INJ 10MG/ML (20 ML MDV) ONE; -LIDOCAINE 1% INJ 10MG/ML (20 ML MDV) SQ ONE; -PROPOFOL 10 MG/ML 20 ML VIAL IV ONE; -SODIUM CHLORIDE 0.9% 1,000 ML IV SCH
[2021-01-05 09:08] VITALS: TEMP 97.8
[2021-01-05] MEDS ORDERED: LACTATED RINGERS 1,000 ML IV ONE (09:08)
[2021-01-05] MEDS ORDERED: PROPOFOL 10 MG/ML 20 ML VIAL IV ONE (09:44)
[2021-01-05] MEDS ORDERED: GLYCOPYRROLATE 0.2 MG/ML 2 ML VIAL ONE (09:44)
[2021-01-05] MEDS ORDERED: LIDOCAINE 1% INJ 10MG/ML (20 ML MDV) ONE (09:44)
--- NOTE | 2021-01-05 09:51 | P.PCN ---
Date of Procedure: 01/05/21 Procedure(s) Performed: BRIEF HISTORY: Patient is a 60-year-old, pleasant,female scheduled for an upper endoscopy as a part of evaluation of chronic epigastric pain for the last 1 year duration. She was recently started on Protonix 40 mg daily and symptoms are gradually improving.. PROCEDURE PERFORMED: Esophagogastroduodenoscopy with biopsy. PREOPERATIVE DIAGNOSIS: Chronic epigastric pain of 1 year duration. IV sedation per anesthesia. PROCEDURE: After informed consent was obtained, the patient was brought into the endoscopy unit. IV sedation was administered by Anesthesia under continuous monitoring. Initially the Olympus GIF-140 video endoscope was inserted into the mouth. Esophagus intubated without any difficulty. It was gradually advanced into the stomach and duodenum and carefully examined. The bulb and the second part of the duodenum appeared normal. The scope at this time was withdrawn to the stomach, adequately insufflated with air, and upon careful examination, mucosa of the antrum, had mild gastritis and biopsies were done from this area. The body, cardia and the fundus appeared normal. The scope was then withdrawn into the esophagus. The GE junction was located at 39 cm from the incisors. There were 2 small islands of Fish's appearing mucosa just proximal to the GE junction measuring 2 mm in size which was biopsied. The esophagus appeared normal. There were no erosions or ulcerations seen and the patient tolerated the procedure well. IMPRESSION: 1. Mild antralgastritis. 2. 2 small islands of Fish's appearing mucosa just proximal to the GE junction measuring 2 mm in size status post biopsy. RECOMMENDATIONS: The findings of this examination were discussed with the patient as well as a family. She was advised to follow with the biopsy results. She will continue with Protonix 40 mg daily and follow antireflux measures.
[2021-01-05 10:00] VITALS: RESP 16
[2021-01-05 10:32] VITALS: BP 141/77; PULSE 65
== END 2021-01-05 10:41 | disposition home or self-care (01) ==
LOC: ORWHC2ENDO 08:28
PROVIDERS: ATTEND Internal Medicine Gastroenterology
DX: K22.70 Barrett's esophagus without dysplasia (principal); K29.50 Unspecified chronic gastritis without bleeding; K20.0 Eosinophilic esophagitis; I10 Essential (primary) hypertension; E78.5 Hyperlipidemia, unspecified; E07.9 Disorder of thyroid, unspecified; F41.9 Anxiety disorder, unspecified; Z90.710 Acquired absence of both cervix and uterus; F32.9 Major depressive disorder, single episode, unspecified; Z79.890 Hormone replacement therapy; Z79.899 Other long term (current) drug therapy
CPT/HCPCS: 88305; 43239; J2001; J2704

== ENCOUNTER → 2022-06-09 | Outpatient (CLI) | payer OTHER ==
--- NOTE | 2022-06-09 13:20 | XR ---
EXAMINATION TYPE: XR lumbosacral spine min 4V DATE OF EXAM: 06/09/2022 CLINICAL HISTORY: pain COMPARISON: NONE TECHNIQUE: Frontal, lateral, and oblique images of the lumbar spine are obtained. FINDINGS: There are 5 lumbar type vertebral bodies identified. The lumbar spine shows satisfactory alignment without evidence of acute fracture or dislocation. Vertebral body heights are within normal limits. Mild multilevel degenerative disc space narrowing and spondylosis. The overlying soft tiss ue appears unremarkable. IMPRESSION: No acute fracture or dislocation is seen in the lumbar spine.ICD 10 NO FRACTURE, INITIAL EVALUATION
== END | disposition home or self-care (01) ==
LOC: RADXRMAIN 12:52
PROVIDERS: ATTEND Physical Medicine & Rehabilitation
DX: M51.36 Other intervertebral disc degeneration, lumbar region (principal)
CPT/HCPCS: 72110

== ENCOUNTER → 2022-09-01 | Outpatient (CLI) | payer OTHER ==
[2022-09-01 16:11] LABS: ALT 23 U/L (8-44); AST 17 U/L (13-35); Albumin 4.3 d/dL (3.8-4.9); Albumin/Globulin Ratio 1.65 Ratio (1.60-3.17); Alkaline Phosphatase 65 U/L (41-126); Blood Urea Nitrogen 13.2 mg/dL (9.0-27.0); Calcium 10.2 mg/dL (8.7-10.3); Chloride 104 mmol/L (96-109); Chol/HDL Ratio 5.84 Ratio; Globulin 2.6 d/dL (1.6-3.3); Glucose 101 mg/dL (70-110); LDL Cholesterol,Calculated 92.6 mg/dL (0.0-131.0); Potassium 4.9 mmol/L (3.5-5.5); Sodium 141 mmol/L (135-145); Total Bilirubin 0.3 mg/dL (0.3-1.2); Total Protein 6.9 d/dL (6.2-8.2)
== END | disposition home or self-care (01) ==
LOC: LABWHC1 10:43
PROVIDERS: ATTEND Internal Medicine Clinical Cardiac Electrophysiology
DX: I10 Essential (primary) hypertension (principal); E78.5 Hyperlipidemia, unspecified; R00.2 Palpitations
CPT/HCPCS: 36415; 80053; 80061; 83721; 84443; 85025

== ENCOUNTER → 2022-09-14 | Outpatient (CLI) | payer OTHER ==
[2022-09-14 17:45] LABS: Basophils # (A) 0.06 X 10*3/uL (0.00-0.10); Basophils % (A) 0.7 %; Eosinophils % (A) 4.6 %; HGB 14.2 d/dL (12.0-15.0); Lymphocytes # (A) 4.59 X 10*3/uL (0.90-5.00); Lymphocytes % (A) 53.2 %; MCH 30.4 pg (27.0-32.0); MCHC 32.3 d/dL (32.0-37.0); MCV 94.2 FL (80.0-97.0); Mean Platelet Volume 9.5 FL (9.5-12.2); Monocytes # (A) 0.62 X 10*3/uL (0.20-1.00); Monocytes % (A) 7.2 %; NRBC Per 100 WBC 0 X 10*3/uL (0.00-0.01); Neutrophils # (A) 2.94 X 10*3/uL (1.80-7.70); Neutrophils % (A) 34.2 %; Platelet Count 351 X 10*3/uL (140-440); RBC 4.67 X 10*6/uL (4.10-5.20); WBC 8.62 X 10*3/uL (4.50-10.00)
== END | disposition home or self-care (01) ==
LOC: LABWHC1 11:22
PROVIDERS: ATTEND Internal Medicine Clinical Cardiac Electrophysiology
DX: Z01.812 Encounter for preprocedural laboratory examination (principal); I10 Essential (primary) hypertension; R00.2 Palpitations; E78.5 Hyperlipidemia, unspecified
CPT/HCPCS: 36415; 85025

== ENCOUNTER 2024-10-06 11:56 | Emergency (ER) | payer OTHER ==
[2024-10-06 12:09] VITALS: RESP 18
--- NOTE | 2024-10-06 12:37 | ED ---
General Adult HPI - General Chief complaint: Back Pain/Injury Stated complaint: Back pain Time Seen by Provider: 10/06/24 12:11 Source: patient Mode of arrival: ambulatory Limitations: no limitations - History of Present Illness Initial comments: Dictation was produced using [employer] dictation software. please excuse any grammatical, word or spelling errors. Chief Complaint: 64-year-old female with back pain History of Present Illness: Patient 64-year-old female presents to the emergency department with back pain. States that her pain has been ongoing for 3 days. States that she has some discoloration to her mid and lower back. States it hurts to the touch. Able to walk. Pain is not significantly exacerbated with standing or twisting. Denies any history of bleeding disorder. The ROS documented in this emergency department record has been reviewed and confirmed by me. Those systems with pertinent positive or negative responses have been documented in the HPI. All other systems are other negative and/or noncontributory. - Related Data Home Medications Medication Instructions Recorded Confirmed Levothyroxine Sodium [Synthroid] 25 mcg PO QAM 07/28/13 05/02/21 rOPINIRole HCL [Requip] 0.25 mg PO HS 07/27/15 05/02/21 Escitalopram [Lexapro] 20 mg PO QAM 01/06/19 05/02/21 Simvastatin [Zocor] 40 mg PO HS 01/06/19 05/02/21 ALPRAZolam [Xanax] 1 mg PO TID PRN 10/28/20 05/02/21 Baclofen [Lioresal] 20 mg PO DAILY 10/28/20 05/02/21 Metoprolol Tartrate [Lopressor] 50 mg PO QAM 10/28/20 05/02/21 Pantoprazole [Protonix] 40 mg PO QAM 10/28/20 05/02/21 Cholecalciferol (Vitamin D3) 125 mcg PO DAILY 01/04/21 05/02/21 [Vitamin D3 (125 MCG = 5,000 IU)] oxyCODONE-APAP 10-325MG [Percocet 1 tab PO Q6HR PRN 04/20/21 05/02/21 10-325 mg] Allergies Allergy/AdvReac Type Severity Reaction Status Date / Time duloxetine HCl Allergy Rash/Hives Verified 10/06/24 12:09 [From [facility]] Review of Systems ROS Statement: Those systems with pertinent positive or pertinent negative responses have been documented in the HPI. ROS Other: All systems not noted in ROS Statement are negative. Past Medical History Past Medical History: Fibromyalgia, GERD/Reflux, Hyperlipidemia, Hypertension, Syncope, Thyroid Disorder Additional Past Medical History / Comment(s): hypothyroid, migraines, migraine with syncope, chronic back pain. History of Any Multi-Drug Resistant Organisms: None Reported Past Surgical History: Hysterectomy Additional Past Surgical History / Comment(s): loop recorder and removal Past Anesthesia/Blood Transfusion Reactions: No Reported Reaction Past Psychological History: Anxiety, Depression Smoking Status: Current every day smoker Past Alcohol Use History: None Reported Past Drug Use History: None Reported - Past Family History Mother Family Medical History: Cancer Additional Family Medical History / Comment(s): Mother of stomach CA at the age of 78yrs. Father Family Medical History: Cancer Additional Family Medical History / Comment(s): Father of throat CA at the age of 81 or 82 yrs. Sister(s) Family Medical History: Cancer Additional Family Medical History / Comment(s): Breast CA. General Exam - General Exam Comments Initial Comments: PHYSICAL EXAM: General Impression: Alert and oriented x3, not in acute distress HEENT: Normocephalic atraumatic, extra-ocular movements intact, pupils equal and reactive to light bilaterally, mucous membranes moist. Cardiovascular: Heart regular rate and rhythm Chest: Able to complete full sentences, no retractions, no tachypnea Abdomen: abdomen soft, non-tender, non-distended, no organomegaly Musculoskeletal: Pulses present and equal in all extremities, no peripheral edema, mild diffuse ecchymoses along the back Motor: no focal deficits noted Neurological: CN II-XII grossly intact, no focal motor or sensory deficits noted Skin: Intact with no visualized rashes Psych: Normal affect and mood Limitations: no limitations Course Vital Signs 10/06/24 10/06/24 12:07 13:24 Temperature 97.8 F Pulse Rate 77 64 Respiratory 18 18 Rate Blood Pressure 135/70 155/83 O2 Sat by Pulse 99 98 Oximetry Medical Decision Making - Medical Decision Making Was pt. sent in by a medical professional or institution (, PA, RADIO PERFORMER, urgent care, hospital, or halfway...) When possible be specific @ -No Did you speak to anyone other than the patient for history (EMS, parent, family, police, friend...)? What history was obtained from this source @ -No Did you review nursing and triage notes (agree or disagree)? Why? @ -I reviewed and agree with nursing and triage notes Were old charts reviewed (outside hosp., previous admission, EMS record, old EKG, old radiological studies, urgent care reports/EKG's, halfway records)? Report findings @ -No old charts were reviewed Differential Diagnosis (chest pain, altered mental status, abdominal pain women, abdominal pain men, vaginal bleeding, musculoskeletal, weakness, fever, dyspnea, syncope, headache, dizziness, GI bleed, back pain, seizure, CVA, palpatations, mental health)? @ -Retroperitoneal hemorrhage, spine fracture, bruising EKG interpreted by me (3pts min.). @ -None done X-rays interpreted by me (1pt min.). @ -None done CT interpreted by me (1pt min.). @ -None done U/S interpreted by me (1pt. min.). @ -None done What testing was considered but not performed or refused? (CT, X-rays, U/S, labs)? Why? @ -None What meds were considered but not given or refused? Why? @ -None Was smoking cessation discussed for >3mins.? @ -No Were there social determinants of health that impacted care today? How? (Homelessness, low income, unemployed, alcoholism, drug addiction, transportation, low edu. Level, literacy, decrease access to med. care, fdc, rehab)? @ -No Was there de-escalation of care discussed even if they declined (Discuss DNR or withdrawal of care, Hospice)? DNR status @ -No What co-morbidities impacted this encounter? (DM, HTN, Smoking, COPD, CAD, Cancer, CVA, ARF, Chemo, Hep., AIDS, mental health diagnosis, sleep apnea, morbid obesity)? @ -None Was patient admitted / discharged? Hospital course, mention meds given and route, prescriptions, significant lab abnormalities, going to OR and other pertinent info. @ -64-year-old female with back pain. She has some bruising mildly to her lower back. Vital signs stable. Patient has no high risk features. Labs unremarkable. No findings to suggest coagulation issue. Patient discharged advised follow-up with primary care doctor. Did you discuss the management of the patient with other professionals (professionals i.e. , PA, RADIO PERFORMER, lab, RT, psych nurse, social worker clinical, classroom technology coach, teacher, chairman & chief executive officer, case sealer)? Give summary @ -No Was critical care preformed (if so, how long)? @ -No Undiagnosed new problem with uncertain prognosis? @ -No Drug Therapy requiring intensive monitoring for toxicity (Heparin, Nitro, Insulin, Cardizem)? @ -No Were any procedures done? @ -No Diagnosis/symptom? Acute, or Chronic, or Acute on Chronic? Uncomplicated (without systemic symptoms) or Complicated (systemic symptoms)? @ -Back pain, no high risk features Side effects of treatment? @ -No Exacerbation, Progression, or Severe Exacerbation? @ -No Poses a threat to life or bodily function? How? (Chest pain, USA, PA, pneumonia, PE, COPD, DKA, ARF, appy, cholecystitis, CVA, Diverticulitis, Homicidal, Suicidal, threat to staff... and all critical care pts) @ -No - Lab Data Result diagrams: 10/06/24 13:14 10/06/24 13:14 Lab Results 10/06/24 10/06/24 10/06/24 Range/Units 13:14 13:14 13:14 WBC 7.84 (4.50-10.00) 10*3/uL RBC 4.24 (4.10-5.20) 10*6/uL Hgb 12.8 (12.0-15.0) g/dL Hct 38.8 (37.2-46.3) % MCV 91.5 (80.0-97.0) fL MCH 30.2 (27.0-32.0) pg MCHC 33.0 (32.0-37.0) g/dL Plt Count 331 (140-440) 10*3/uL MPV 8.6 L (9.5-12.2) fL Immature Gran % (Auto) 0.1 % Neutrophils % 36.1 % Lymphocytes % 51.0 % Monocytes % 7.8 % Eosinophils % 4.1 % Basophils % 0.9 % Immature Gran # 0.01 (0.00-0.04) 10*3/uL Neutrophils # 2.83 (1.80-7.70) 10*3/uL Lymphocytes # 4.00 (0.90-5.00) 10*3/uL Monocytes # 0.61 (0.20-1.00) 10*3/uL Eosinophils # 0.32 (0.04-0.35) 10*3/uL Basophils # 0.07 (0.00-0.10) 10*3/uL PT 10.6 (10.0-12.5) sec INR 0.9 (<1.2) APTT 26.3 (22.0-30.0) sec Sodium 138 (137-145) mmol/L Potassium 4.2 (3.5-5.1) mmol/L Chloride 103 (98-107) mmol/L Carbon Dioxide 25 (22-30) mmol/L Anion Gap 10 mmol/L BUN 16 (7-17) mg/dL Creatinine 0.62 (0.52-1.04) mg/dL Est GFR (CKD-EPI)AfAm >90 (>60 ml/min/1.73 sqM) Est GFR (CKD-EPI)NonAf >90 (>60 ml/min/1.73 sqM) Glucose 111 H (74-99) mg/dL Calcium 10.2 (8.4-10.2) mg/dL Disposition Clinical Impression: Back pain Disposition: HOME SELF-CARE Condition: Fair Instructions (If sedation given, give patient instructions): Acute Low Back Pain (ED) Is patient prescribed a controlled substance at d/c from ED?: No Referrals: Brandon Joiner MD [Primary Care Provider] - 1-2 days Time of Disposition: 14:39
[2024-10-06] MEDS: HYDROmorphone 1 MG/ML 1 ML SYRINGE IVP STA (13:22)
[2024-10-06 13:28] LABS: Basophils # (A) 0.07 10*3/uL (0.00-0.10); Basophils % (A) 0.9 %; Eosinophils # (A) 0.32 10*3/uL (0.04-0.35); Eosinophils % (A) 4.1 %; HCT 38.8 % (37.2-46.3); HGB 12.8 g/dL (12.0-15.0); Lymphocytes # (A) 4.00 10*3/uL (0.90-5.00); Lymphocytes % (A) 51.0 %; MCH 30.2 pg (27.0-32.0); MCHC 33.0 g/dL (32.0-37.0); MCV 91.5 fL (80.0-97.0); Monocytes # (A) 0.61 10*3/uL (0.20-1.00); Monocytes % (A) 7.8 %; Neutrophils # (A) 2.83 10*3/uL (1.80-7.70); Neutrophils % (A) 36.1 %; Platelet Count 331 10*3/uL (140-440); RBC 4.24 10*6/uL (4.10-5.20); RDW 13.5 % (11.5-14.5); WBC 7.84 10*3/uL (4.50-10.00)
[2024-10-06 13:44] LABS: African American GFR (CKD) >90 (>60 ml/min/1.73 sqM); Anion Gap 10 mmol/L; Blood Urea Nitrogen 16 mg/dL (7-17); Calcium 10.2 mg/dL (8.4-10.2); Carbon Dioxide 25 mmol/L (22-30); Chloride 103 mmol/L (98-107); Glucose 111 mg/dL (74-99); Non-African American GFR(CKD) >90 (>60 ml/min/1.73 sqM); Potassium 4.2 mmol/L (3.5-5.1); Sodium 138 mmol/L (137-145)
[2024-10-06 14:02] LABS: INR 0.9 (<1.2); Partial Thromboplastin Time 26.3 sec (22.0-30.0); Prothrombin Time 10.6 sec (10.0-12.5)
[2024-10-06 14:49] VITALS: BP 145/75; PULSE 78; TEMP 97.6
== END 2024-10-06 14:49 | disposition home or self-care (01) ==
LOC: EC 11:56
DX: M54.50 Low back pain, unspecified (principal); F17.200 Nicotine dependence, unspecified, uncomplicated; Z88.8 Allergy status to other drugs, medicaments and biological substances
CPT/HCPCS: 36415; 80048; 85025; 85610; 85730; 99283; 96374; J1171